=== PATIENT | male | born 1930 | race African-American/Black ===

== ENCOUNTER 2018-10-14 10:52 | Inpatient (IN) | payer OTHER ==
[2018-10-14 13:30] LABS: BASO % 0.3 % (0-2.0); EOS % 0.5 % (0-4.5); HEMATOCRIT 37.1 % (35.4-49); HEMOGLOBIN 11.9 GM/dL (11.7-16.9); LYMPH % 6.5 % (8-40); MCH 27.7 pg (25.7-33.7); MCHC 32.1 g/dl (32.0-35.9); MEAN CELL VOLUME 86.4 fl (80-96); MEAN PLT VOLUME 8.1 fl (7.5-11.1); MONO % 8.2 % (3.8-10.2); NEUT % 84.5 % (42.8-82.8); PLATELET COUNT 327 K/MM3 (134-434); RDW 14.6 % (11.9-15.9); WHITE BLOOD COUNT 16.3 K/mm3 (4.0-10.0)
[2018-10-14 13:56] LABS: ALBUMIN 2.4 g/dl (3.4-5.0); BILIRUBIN,TOTAL 0.3 mg/dL (0.2-1); CALCIUM 8.6 mg/dL (8.5-10.1); MAGNESIUM 2.5 mg/dL (1.8-2.4); POTASSIUM 4.5 mmol/L (3.5-5.1)
[2018-10-14] MEDS ORDERED: PIPERACILLIN/TAZOB 4.5 GM 4.5 GM in DEXTROSE 5%-WATER - 100 ML IVPB ONE (13:56)
[2018-10-14] MEDS ORDERED: VANCOMYCIN 1,000 MG in DEXTROSE 5%-WATER - 250 ML IVPB ONE (13:56)
[2018-10-14 14:02] LABS: INR 1.34 (0.83-1.09); PROTHROMBIN TIME (PATIENT) 15.9 SEC (9.7-13.0)
[2018-10-14 14:04] LABS: ACTIVATED PTT 31.4 SECONDS (25.2-36.5)
[2018-10-14] MEDS ORDERED: VANCOMYCIN 1 GRAM (PRE-DOCKED) 0 MG/0 ML BAG IVPB ONE (14:09)
[2018-10-14] MEDS ORDERED: VANCOMYCIN 1 GRAM (PRE-DOCKED) 1,000 MG/250 ML BAG IVPB ONE (14:11)
[2018-10-14] MEDS ORDERED: HEPARIN NA (PORCINE) 5,000 UNITS/ML 1ML VIAL IVPUSH PRN ×4 (14:12→18:56)
--- NOTE | 2018-10-14 14:20 | PDOC ---
Documentation entered by Shaina Sage SCRIBE, acting as scribe for Addi Torres MD. Addi Torres MD: This documentation has been prepared by the Alona sanchez Victoria, SCRIBE, under my direction and personally reviewed by me in its entirety. I confirm that the documentation accurately reflects all work, treatment, procedures, and medical decision making performed by me. History of Present Illness - General Chief Complaint: Wound Stated Complaint: NO PULSE IN LT FOOT Time Seen by Provider: 10/14/18 11:47 History Source: Patient, Group Home Records, Primary Care Provider Exam Limitations: Dementia - History of Present Illness Initial Comments: 10/14/18 13:06 The patient is an 88 year old male with past medical history of dementia who was sent to the ED by Dr. Mosquera for one week history of cold, swollen left foot. As per nurse at the [facility], patient began developing blisters on his left foot two days ago. In the ED, patients history is limited to his dementia but he reports pain in his left foot. He denies any fever, chills, NVD, cough, SOB, chest pain, or urinary complaints. Vascular: Dr. Mosquera Past History - Past Medical History Allergies/Adverse Reactions: Allergies Allergy/AdvReac Type Severity Reaction Status Date / Time No Known Allergies Allergy Unverified 10/14/18 13:56 Home Medications: Ambulatory Orders Lanolin Alcohol/Mo/W.pet/[place] [Eucerin Creme] 113 gm TP BID 10/14/18 Silver Sulfadiazine 1% Top Cr [Silvadene] 1 applic TP ONCE 10/14/18 COPD: No - Suicide/Smoking/Psychosocial Hx Smoking History: Unknown if ever smoked Hx Alcohol Use: (pt dementia) Drug/Substance Use Hx: (pt dementia) Review of Systems - Review of Systems Able to Perform ROS?: Yes Comments:: 10/14/18 13:06 GENERAL/CONSTITUTIONAL: No fever or chills. No weakness. HEAD, EYES, EARS, NOSE AND THROAT: No change in vision. No ear pain or discharge. No sore throat. GASTROINTESTINAL: No nausea, vomiting, diarrhea or constipation. GENITOURINARY: No dysuria, frequency, or change in urination. CARDIOVASCULAR: No chest pain or shortness of breath. RESPIRATORY: No cough, wheezing, or hemoptysis. MUSCULOSKELETAL: (+) Left foot pain. No neck or back pain. SKIN: No rash NEUROLOGIC: No headache, vertigo, loss of consciousness, or change in strength/ sensation. ENDOCRINE: No increased thirst. No abnormal weight change. HEMATOLOGIC/LYMPHATIC: No anemia, easy bleeding, or history of blood clots. ALLERGIC/IMMUNOLOGIC: No hives or skin allergy. *Physical Exam - Vital Signs Last Vital Signs Temp Pulse Resp BP Pulse Ox 97.2 F L 86 20 138/80 99 10/14/18 11:13 10/14/18 11:13 10/14/18 11:13 10/14/18 11:13 10/14/18 11:13 - Physical Exam Comments: 10/14/18 15:16 GENERAL: Awake, alert, oriented to name only, in no acute distress. Pleasant HEAD: No signs of trauma EYES: EOMI, sclera anicteric, conjunctiva clear ENT: Nares patent, oropharynx clear without exudates. Moist mucosa NECK: Normal ROM, supple, no lymphadenopathy, JVD, or masses LUNGS: Breath sounds equal, clear to auscultation bilaterally. No wheezes, and no crackles HEART: Regular rate and rhythm, normal S1 and S2, no murmurs, rubs or gallops ABDOMEN: Soft, nontender, normoactive bowel sounds. No guarding, no rebound. No masses EXTREMITIES: L foot with no palpable pluse, compared to R foot is cool with erythema and multiple superficial wounds with denuded skin. No crepitus. R foot with palpable pulse, no erythema NEUROLOGICAL: Normal speech, cranial nerves intact, moving all four extremities SKIN: Warm, Dry, normal turgor, no rashes or lesions noted. Heart Score/ECG Review #1 10/14/18 15:20 Twelve-lead EKG was performed and reviewed by me. Sinus rhythm, rate 87. Normal axis. No ST elevations.+ PACs. ED Treatment Course - LABORATORY CBC & Chemistry Diagram: 10/20/18 17:52 10/20/18 05:30 - ADDITIONAL ORDERS Additional order review: Laboratory Results 10/14/18 10/14/18 13:05 13:05 PT with INR 15.90 H INR 1.34 H PTT (Actin FS) 31.4 Sodium 133 L Potassium 4.5 Chloride 100 Carbon Dioxide 29 Anion Gap 5 L BUN 20 H Creatinine 1.0 Est GFR (CKD-EPI)AfAm 78.64 Est GFR (CKD-EPI)NonAf 67.85 Random Glucose 105 Calcium 8.6 Magnesium 2.5 H Total Bilirubin 0.3 AST 20 ALT 23 Alkaline Phosphatase 91 Total Protein 7.0 Albumin 2.4 L 10/14/18 13:05 RBC 4.30 MCV 86.4 MCHC 32.1 RDW 14.6 MPV 8.1 Neutrophils % 84.5 H Lymphocytes % 6.5 L Monocytes % 8.2 Eosinophils % 0.5 Basophils % 0.3 - RADIOLOGY Radiology Studies Ordered: Category Date Time Status ABDOMEN CTA AOR & BLE RUNOFF [CT] Stat CT Scan 10/14/18 13:59 Ordered CHEST X-RAY PORTABLE* [RAD] Stat Radiology 10/14/18 12:02 Ordered DUPLEX ART. LOWER COMPL US [US] Stat Ultrasound 10/14/18 12:02 Ordered Radiograph Interpretation: 10/14/18 16:[address] as reviewed by Dr. Sanabria reports moderate atrophy with chronic microvascular ischemic disease changes. Faint asymmetric low-attenuation density in the left frontal lobe relative to the right, likely an artifact. Correlate clinically to rule out an acute infarct in the left middle cerebral artery territory. Medical Decision Making - Medical Decision Making 10/14/18 12:36 88yo M hx dementia presents to the ED with a cold L foot for unknown period of time Per CHYNA Johnson at ID, foot has been swollen for 1 week and cold for atleast [address] Mosquera who saw pt this AM at the ID, unclear duration but believed by Dr. Mosquera to be chronic in nature Here, L foot no palpable pulses, foot is erythematous, tender, with multiple superficial wounds Case discussed with Dr. Mosquera, as soon as coags are back, will start heparin gtt. Dr. Mosquera requests CTA aorta with runoff if renal function allows. Pt refused US 2/2 pain, attempted to redirect pt and give more pain medication but due to dementia, the pressure of the probe and duration of the study, pt unlikely to be cooperative at this time. WIll obtain CTA von 10/14/18 14:20 coags back, heparin gtt ordered, nurse preparing at this time 10/14/18 14:45 Spoke with pt's HCP and KENAN Person (niece) on the phone and updated her. Confirms that pt has no PMH other than dementia Pt is combative on CT table, was sent back by cath lab radiology technician without communication. Will sedate with ativan 1mg and send back. 10/14/18 15:[address] again 10/14/18 17:30 CT head negative for bleeding. Possible L frontal artifact, vs much less likely ischemic stroke although pt with no focal deficits on exam CTA pending Once back, pt can be admitted Heparin gtt running, 6hr ptt will be at 915pm (has been ordered) Case signed out to Dr. Forrest for further mgmt *DC/Admit/Observation/Transfer Diagnosis at time of Disposition: Arterial occlusion - Discharge Dispostion Condition at time of disposition: Fair Decision to Admit order Date/Time: Decision to Admit Order Category Date Time Status Decision to Admit to Hospital Routine Admission 10/14/18 13:07 Active - Referrals - Patient Instructions - Post Discharge Activity - Attestations Physician Attestion: 10/14/18 17:54 I, Dr. Addi Torres MD, attest that this document has been prepared under my direction and personally reviewed by me in its entirety. I further attest, that it accurately reflects all work, treatment, procedures and medical decision -making performed by me.
[2018-10-14] MEDS ORDERED: LORazepam 2 MG/ML SDV VIAL ONE (15:07)
[2018-10-14] MEDS ORDERED: PIPERACILLIN/TAZOB 4.5 GM 4.5 GM/100 ML BAG IVPB ONE (15:08)
[2018-10-14] MEDS ORDERED: HEPARIN INFUSION - 25,000 UNITS/500 ML INFUS.BAG IVPB ONE (15:13)
[2018-10-14] MEDS: HEPARIN INFUSION - 25,000 UNITS/500 ML INFUS.BAG IVPB SCH (15:29)
--- NOTE | 2018-10-14 15:33 | PN ---
Progress Note (short form) - Note Progress Note: Pt seen by Dr. Mosquera in the nursing facility and sent for admission and workup for a cool left leg. He is in the ER awaiting CTA of his leg. The patient has dementia and unable to answer questions. Vital Signs Period Temp Pulse Resp BP Sys/Quinteros Pulse Ox Last 24 Hr 97.2 F 86 20 138/80 99 GEN: Arousable and refusing IV insertion/examination ABD: soft, non-distended, no palpable masses LE: bilateral femoral pulses. RLE: +1 DP with palpable PT, warm to touch without any ulcers. LLE: cool to touch at above ankle level. No pulses present with palpation/ auscultation. Plantar surface with blister 4th/5th toe and dorsal aspect of his foot with denuding of skin. Foot swollen. CBC, BMP 10/14/18 13:05 10/14/18 13:05 A/P: 88 yo male with Left cool leg Plan for admission CTA of the left leg to be completed today IV heparin to for ischemia to his leg D/w Dr. Mosquera Please medical clear, will plan for possible angio pending CTA results.
--- NOTE | 2018-10-14 15:36 | EKG ---
Test Reason : Blood Pressure : / mmHG Vent. Rate : 087 BPM Atrial Rate : 087 BPM P-R Int : 144 ms QRS Dur : 076 ms QT Int : 378 ms P-R-T Axes : 064 000 -09 degrees QTc Int : 454 ms SINUS RHYTHM WITH PREMATURE ATRIAL COMPLEXES SEPTAL INFARCT , AGE UNDETERMINED ABNORMAL ECG NO PREVIOUS ECGS AVAILABLE Confirmed by ELSIE BARROS MD ([id number]) on 10/14/2018 3:36:10 PM Referred By: Confirmed By:ELSIE BARROS MD
--- NOTE | 2018-10-14 18:26 | PDOC ---
*Physical Exam - Vital Signs Last Vital Signs Temp Pulse Resp BP Pulse Ox 97.2 F L 82 18 152/81 99 10/14/18 11:13 10/14/18 15:28 10/14/18 15:28 10/14/18 15:28 10/14/18 11:13 - Physical Exam Comments: 10/14/18 18:[address] Marquez. Patient is an 88-year-old male who presented with a prolonged period of pulselessness to the left lower extremity (one week) . I received a preliminary report from Dr. Roberson radiology who reports that there is no blood flow past left mid thigh on the CTA. Complete report will be completed in the morning. Patient had been treated with broad-spectrum IV antibiotics and heparin have been initiated. Dr. Mosquera vascular surgery was informed and no immediate surgery is planned given the duration of the patient' s symptoms. Will admit to med /surge. ED Treatment Course - LABORATORY CBC & Chemistry Diagram: 10/14/18 13:05 10/14/18 13:05 - ADDITIONAL ORDERS Additional order review: Laboratory Results 10/14/18 10/14/18 10/14/18 13:05 13:05 13:05 PT with INR 15.90 H INR 1.34 H PTT (Actin FS) 31.4 Sodium 133 L Potassium 4.5 Chloride 100 Carbon Dioxide 29 Anion Gap 5 L BUN 20 H Creatinine 1.0 Est GFR (CKD-EPI)AfAm 78.64 Est GFR (CKD-EPI)NonAf 67.85 Random Glucose 105 Calcium 8.6 Magnesium 2.5 H Total Bilirubin 0.3 AST 20 ALT 23 Alkaline Phosphatase 91 Total Protein 7.0 Albumin 2.4 L Blood Type O POSITIVE Antibody Screen Negative 10/14/18 13:05 RBC 4.30 MCV 86.4 MCHC 32.1 RDW 14.6 MPV 8.1 Neutrophils % 84.5 H Lymphocytes % 6.5 L Monocytes % 8.2 Eosinophils % 0.5 Basophils % 0.3 - Medications Given in the ED: ED Medications Discontinued Medications Generic Name Dose Route Start Last Admin Trade Name Freq PRN Reason Stop Dose Admin Vancomycin HCl 1,000 mg/ 250 mls @ 250 mls/hr 10/14/18 13:56 10/14/18 14:16 Dextrose IVPB 10/14/18 14:55 250 mls/hr ONCE ONE Administration Protocol Piperacillin Sod/Tazobactam 100 mls @ 200 mls/hr 10/14/18 13:56 10/14/18 15: 29 Sod 4.5 gm/ Dextrose IVPB 10/14/18 14:25 200 mls/hr ONCE ONE Administration Protocol Lorazepam 1 mg 10/14/18 15:10 10/14/18 15:29 Ativan Injection - IVPUSH 10/14/18 15:11 1 mg ONCE ONE Administration *DC/Admit/Observation/Transfer Diagnosis at time of Disposition: Arterial occlusion - Discharge Dispostion Condition at time of disposition: Fair Decision to Admit order: Yes - Referrals - Patient Instructions - Post Discharge Activity
[2018-10-14] MEDS ORDERED: LACTATED RINGERS SOLUTION 1,000 ML IV SCH (19:00)
--- NOTE | 2018-10-14 19:06 | PN ---
Teaching Attending Note Name of Resident: Arnol Grajeda ATTENDING PHYSICIAN STATEMENT I saw and evaluated the patient. I reviewed the resident's note and discussed the case with the resident. I agree with the resident's findings and plan as documented. SUBJECTIVE: Patient is an 88 year old man with PMH of dementia who was sent to the ER by Dr. Mosquera for one week history of cold, swollen left foot. As per nurse at the [facility], patient began developing blisters on his left foot two days ago. In the ER, patients history is limited to his dementia but he reports pain in his left foot. He denies any fever, chills, nausea, vomiting, diarrhea, cough, SOB, chest pain, or urinary complaints. OBJECTIVE: Somnolent but arousable. Vital Signs Period Temp Pulse Resp BP Sys/Quinteros Pulse Ox Last 24 Hr 97.2 F 82-86 18-20 138-152/80-81 99 HEENT: No Jaundice, eye redness or discharge, PERRLA, EOMI. Normocephalic, atraumatic. External ears are normal. No nasal discharge. Neck: Supple, nontender. No palpable adenopathy or thyromegaly. No JVD Chest: Good effort. Clear to auscultation and percussion. Heart: Regular. No S3 or rub. 2/6 JIHAN. Abdomen: Not distended, soft, nontender and no HSM. No rebound or guarding. Normal bowel sounds. Ext: Peripheral pulses intact. LLE is cool to touch above ankle level. No pulses present with palpation/auscultation. Plantar surface with blister 4th/ 5th toe and dorsal aspect of his foot with sloughing of skin. Foot swollen with dusky toes. Skin: Warm and dry. No petechiae, rash or ecchymosis. Neuro: Somnolent but arousable. Unable to follow commands. CN 2-12 grossly intact. Sensation grossly intact in all four extremities and DTR are symmetric. Psych: Appropriate mood and affect. Current Medications Generic Name Dose Route Start Last Admin Trade Name Freq PRN Reason Stop Dose Admin Heparin Sodium (Porcine) 1,000 unit 10/14/18 18:56 Heparin - IVPUSH PRN PRN Heparin Heparin Sodium (Porcine) 5,000 unit 10/14/18 18:56 Heparin - IVPUSH PRN PRN Heparin HEPARIN SOD,PORK IN 0.45% NACL 25,000 units in 500 mls @ 20 mls/hr 10/14/18 19 :00 Heparin-1/2ns 25,000 Units/500 IVPB TITR AVINASH Protocol 1,000 UNITS/HR Lactated Ringer's 1,000 mls @ 83 mls/hr 10/14/18 19:00 Lactated Ringers Solution IV 10/16/18 07:03 ASDIR [facility] Home Medications Medication Instructions Recorded Lanolin Alcohol/Mo/W.pet/[place] 113 gm TP BID 10/14/18 [Eucerin Creme] Silver Sulfadiazine 1% Top Cr 1 applic TP ONCE 10/14/18 [Silvadene] Abnormal Lab Results 10/14/18 10/14/18 10/14/18 13:05 13:05 13:05 WBC 16.3 H Absolute Neuts (auto) 13.7 H Neutrophils % 84.5 H Lymphocytes % 6.5 L PT with INR 15.90 H INR 1.34 H Sodium 133 L Anion Gap 5 L BUN 20 H Magnesium 2.5 H Albumin 2.4 L ASSESSMENT AND PLAN: 1. Left lower extremity arterial occlusion - Preliminary report of CTA from Dr. Roberson radiology states that there is no blood flow past left mid thigh. Complete report will be completed in the morning. Patient had been treated with IV vancomycin and zosyn after sepsis work up. IV heparin drip started and patient is being kept NPO for possible surgery tomorrow by Dr. Mosquera - vascular surgery. No immediate surgery is planned given the duration of the patient's symptoms - as per vascular surgery. Unclear why his mental status changed. Head CT scan did not show any acute abnormality. EKG is NSR with no significant ST-T wave changes. Will monitor on telemetry. 2. Hypoalbuminemia - Possibly due to combined effects of malnutrition and inflammation associated with comorbid chronic conditions. Will ensure adequate dietary protein intake and also consult director of graduate medical education. 3. DVT prophylaxis - On IV Heparin drip 4. Advance directives - Full code
--- NOTE | 2018-10-14 19:31 | HP ---
CHIEF COMPLAINT: ischemic left foot HISTORY OF PRESENT ILLNESS: 88 year old male with a hx of dementia presented to ED for 1 week of cold left foot and swelling of the L foot. He sees Dr. Mosquera as an outpatient and follows at [place]. Per report, patient started to develop blisters on his foot 2 days ago as well as increasing pain. Patient is not arousable on my exam and is unable to answer any of my questions. ER course was notable for: (1) prelim CTA read notable for no blood flow to the left foot (2) (3) Recent Travel: unknown PAST MEDICAL HISTORY: dementia PAST SURGICAL HISTORY: unknown at present time Social History: Smoking: unknown at present time Alcohol: unknown at present time Drugs: unknown at present time Family History: Allergies No Known Allergies Allergy (Unverified 10/14/18 13:56) HOME MEDICATIONS: Home Medications Medication Instructions Recorded Lanolin Alcohol/Mo/W.pet/[place] 113 gm TP BID 10/14/18 [Eucerin Creme] Silver Sulfadiazine 1% Top Cr 1 applic TP ONCE 10/14/18 [Silvadene] REVIEW OF SYSTEMS unable to assess due to mental status PHYSICAL EXAMINATION Vital Signs - 24 hr 10/14/18 10/14/18 11:13 15:28 Temperature 97.2 F L Pulse Rate 86 Pulse Rate [ 82 Right Radial] Respiratory 20 18 Rate Blood Pressure 138/80 Blood Pressure 152/81 [Right Arm] O2 Sat by Pulse 99 Oximetry (%) GENERAL: A&Ox0, no acute distress EYES: PERRLA, EOMI ENT: Dry NECK: No JVD LUNGS: CTA, no wheezes HEART: RRR, systolic murmur noted on exam ABDOMEN: Soft, nontender, BS present MUSCULOSKELETAL: No CVA Tenderness EXTREMITIES: 2+ pulses, R foot 1+ pulses, no edema. L foot cool to touch, pulses not palpated. Skin sloughing on dorsal surface of L foot and L 4th toe. Ischemic region noted on distal L lower extremity. upper extremity normal. NEUROLOGICAL: Cranial nerves II-XII intact. Laboratory Results - last 24 hr 10/14/18 10/14/18 10/14/18 13:05 13:05 13:05 WBC 16.3 H RBC 4.30 Hgb 11.9 Hct 37.1 MCV 86.4 MCH 27.7 MCHC 32.1 RDW 14.6 Plt Count 327 MPV 8.1 Absolute Neuts (auto) 13.7 H Neutrophils % 84.5 H Lymphocytes % 6.5 L Monocytes % 8.2 Eosinophils % 0.5 Basophils % 0.3 Nucleated RBC % 0 PT with INR 15.90 H INR 1.34 H PTT (Actin FS) 31.4 Sodium 133 L Potassium 4.5 Chloride 100 Carbon Dioxide 29 Anion Gap 5 L BUN 20 H Creatinine 1.0 Est GFR (CKD-EPI)AfAm 78.64 Est GFR (CKD-EPI)NonAf 67.85 Random Glucose 105 Calcium 8.6 Magnesium 2.5 H Total Bilirubin 0.3 AST 20 ALT 23 Alkaline Phosphatase 91 Total Protein 7.0 Albumin 2.4 L Blood Type Antibody Screen 10/14/18 13:05 WBC RBC Hgb Hct MCV MCH MCHC RDW Plt Count MPV Absolute Neuts (auto) Neutrophils % Lymphocytes % Monocytes % Eosinophils % Basophils % Nucleated RBC % PT with INR INR PTT (Actin FS) Sodium Potassium Chloride Carbon Dioxide Anion Gap BUN Creatinine Est GFR (CKD-EPI)AfAm Est GFR (CKD-EPI)NonAf Random Glucose Calcium Magnesium Total Bilirubin AST ALT Alkaline Phosphatase Total Protein Albumin Blood Type O POSITIVE Antibody Screen Negative ASSESSMENT/PLAN: 88 year old male with a hx of dementia presented to ED for 1 week of cold left foot and swelling of the L foot. #Ischemic Left Foot: unknown hx of afib to indicate embolic origin, possibly thrombotic -per Dr. Mosquera, likely thrombectomy in AM -EKG noted (sinus rhythm with PACs, rate 87, Qtc 454) -heparin ggt -abx vanc/zosyn -npo after midnight -pain control -echo #FEN -lactated ringers @ 83cc/hr -lytes normal, replete as necessary -NPO after midnight #Prophylaxis -heparin ggt #Disposition -admit med surg Visit type - Emergency Visit Emergency Visit: Yes ED Registration Date: 10/14/18 Care time: The patient presented to the Emergency Department on the above date and was hospitalized for further evaluation of their emergent condition. - New Patient This patient is new to me today: Yes Date on this admission: 10/14/18 - Critical Care Critical Care patient: No
[2018-10-14] MEDS: HEPARIN SOD,PORK IN 0.45% NACL 25,000 UNITS/500 ML INFUS.BAG IVPB SCH (20:09)
[2018-10-14] MEDS ORDERED: KETOROLAC TROMETHAMINE 15 MG/ML VIAL IVPUSH PRN (20:40)
[2018-10-14] MEDS ORDERED: MORPHINE SULFATE 2 MG/ML VIAL IVPUSH PRN (20:40)
[2018-10-14] MEDS ORDERED: VANCOMYCIN 1,250 MG in DEXTROSE 5%-WATER - 250 ML IVPB SCH (20:45)
[2018-10-15] MEDS ORDERED: PIPERACILLIN/TAZOBACTAM 3.375 GM VIAL IVPB ONE ×3 (02:30→17:36)
[2018-10-15] MEDS ORDERED: DEXTROSE 5%-WATER - 50 ML IVPB ONE ×3 (02:30→17:36)
[2018-10-15] MEDS: PIPERACILLIN/TAZOB 3.375 GM 3.375 GM in DEXTROSE 5%-WATER - 50 ML IVPB SCH ×4 (02:36→18:54)
[2018-10-15 07:07] LABS: HEMATOCRIT 35.5 % (35.4-49); HEMOGLOBIN 11.7 GM/dL (11.7-16.9); MCH 27.8 pg (25.7-33.7); MCHC 32.8 g/dl (32.0-35.9); MEAN CELL VOLUME 84.8 fl (80-96); MEAN PLT VOLUME 7.8 fl (7.5-11.1); PLATELET COUNT 356 K/MM3 (134-434); RBC 4.19 M/mm3 (4.00-5.60); RDW 14.4 % (11.9-15.9); WHITE BLOOD COUNT 12.7 K/mm3 (4.0-10.0)
[2018-10-15 07:40] LABS: CALCIUM 8.5 mg/dL (8.5-10.1); CREATININE 0.9 mg/dL (0.55-1.3); MAGNESIUM 2.4 mg/dL (1.8-2.4); PHOSPHOROUS 3.9 mg/dL (2.5-4.9); POTASSIUM 4.1 mmol/L (3.5-5.1)
[2018-10-15 09:06] LABS: PREALBUMIN 6.2 mg/dl (20-40)
--- NOTE | 2018-10-15 09:07 | PN ---
Physical Exam: SUBJECTIVE: Patient seen and examined this AM. States he is doing well. Does have some pain in LLE. States he does not think he will need surgery for correction of his ischemia OBJECTIVE: Vital Signs Period Temp Pulse Resp BP Sys/Quinteros Pulse Ox Last 24 Hr 97.2 F-98.7 F 82-95 18-20 127-152/63-98 99-99 GEN: alert, oriented to self only, no acute distress HEENT: PERRL, dry mucus membranes HEART: RRR, no murmurs noted LUNGS: CTA b/l, no wheezes noted ABDOMEN: Soft, nontender EXTREMITIES: LLE: cool, nonpitting edema, no palpable pulses, bandage clean and dry, RLE: good pulses, warm NEURO: CNII-XII grossly in tact, no gross deficits Laboratory Results - last 24 hr 10/14/18 10/14/18 10/14/18 13:05 13:05 13:05 WBC 16.3 H RBC 4.30 Hgb 11.9 Hct 37.1 MCV 86.4 MCH 27.7 MCHC 32.1 RDW 14.6 Plt Count 327 MPV 8.1 Absolute Neuts (auto) 13.7 H Neutrophils % 84.5 H Lymphocytes % 6.5 L Monocytes % 8.2 Eosinophils % 0.5 Basophils % 0.3 Nucleated RBC % 0 PT with INR 15.90 H INR 1.34 H PTT (Actin FS) 31.4 Sodium 133 L Potassium 4.5 Chloride 100 Carbon Dioxide 29 Anion Gap 5 L BUN 20 H Creatinine 1.0 Est GFR (CKD-EPI)AfAm 78.64 Est GFR (CKD-EPI)NonAf 67.85 Random Glucose 105 Calcium 8.6 Phosphorus Magnesium 2.5 H Total Bilirubin 0.3 AST 20 ALT 23 Alkaline Phosphatase 91 Total Protein 7.0 Albumin 2.4 L Prealbumin Blood Type Antibody Screen 10/14/18 10/14/18 10/15/18 13:05 21:25 06:00 WBC 12.7 H RBC 4.19 Hgb 11.7 Hct 35.5 MCV 84.8 MCH 27.8 MCHC 32.8 RDW 14.4 Plt Count 356 MPV 7.8 Absolute Neuts (auto) Neutrophils % Lymphocytes % Monocytes % Eosinophils % Basophils % Nucleated RBC % PT with INR INR PTT (Actin FS) 40.2 H Sodium Potassium Chloride Carbon Dioxide Anion Gap BUN Creatinine Est GFR (CKD-EPI)AfAm Est GFR (CKD-EPI)NonAf Random Glucose Calcium Phosphorus Magnesium Total Bilirubin AST ALT Alkaline Phosphatase Total Protein Albumin Prealbumin Blood Type O POSITIVE Antibody Screen Negative 10/15/18 06:00 WBC RBC Hgb Hct MCV MCH MCHC RDW Plt Count MPV Absolute Neuts (auto) Neutrophils % Lymphocytes % Monocytes % Eosinophils % Basophils % Nucleated RBC % PT with INR INR PTT (Actin FS) Sodium 133 L Potassium 4.1 Chloride 98 Carbon Dioxide 29 Anion Gap 6 L BUN 13 Creatinine 0.9 Est GFR (CKD-EPI)AfAm 89.32 Est GFR (CKD-EPI)NonAf 77.06 Random Glucose 119 H Calcium 8.5 Phosphorus 3.9 Magnesium 2.4 Total Bilirubin AST ALT Alkaline Phosphatase Total Protein Albumin Prealbumin 6.2 L Blood Type Antibody Screen Active Medications Generic Name Dose Route Start Last Admin Trade Name Freq PRN Reason Stop Dose Admin Heparin Sodium (Porcine) 1,000 unit 10/14/18 18:56 Heparin - IVPUSH PRN PRN Heparin Heparin Sodium (Porcine) 5,000 unit 10/14/18 18:56 Heparin - IVPUSH PRN PRN Heparin HEPARIN SOD,PORK IN 0.45% NACL 25,000 units in 500 mls @ 20 mls/hr 10/14/18 19 :00 10/14/18 20:09 Heparin-1/2ns 25,000 Units/500 IVPB Not Given TITR AVINASH Protocol 1,000 UNITS/HR Lactated Ringer's 1,000 mls @ 83 mls/hr 10/14/18 19:00 10/14/18 20:10 Lactated Ringers Solution IV 10/16/18 07:03 83 mls/hr ASDIR AVINASH Administration Piperacillin Sod/Tazobactam 50 mls @ 100 mls/hr 10/15/18 02:00 10/15/18 02:36 Sod 3.375 gm/ Dextrose IVPB 10/15/18 18:29 100 mls/hr Q8H-IV AVINASH Administration Protocol Vancomycin HCl 1,250 mg/ 250 mls @ 166.667 mls/hr 10/14/18 21:00 Dextrose IVPB Q12H AVINASH Protocol Piperacillin Sod/Tazobactam 50 mls @ 100 mls/hr 10/15/18 02:00 Sod 3.375 gm/ Dextrose IVPB Q8H-IV AVINASH Protocol Ketorolac Tromethamine 15 mg 10/14/18 20:40 Toradol Injection - IVPUSH 10/19/18 20:39 Q6H PRN PAIN LEVEL 1 - 3 Morphine Sulfate 1 mg 10/14/18 20:40 Morphine Sulfate IVPUSH Q4H PRN PAIN LEVEL 4 - 6 ASSESSMENT/PLAN: 88 year old male with a hx of dementia presented to ED for 1 week of cold left foot and swelling of the L foot. Left Ischemic Leg -No pulse in left foot, unlikely embolic -Vascular surgery consult appreciated -Continue heparin drip -For angiogram tomorrow, NPO at midnight Dimentia -unsure of baseline, will monitor FEN -hold fluid -monitor and replete -regular diet today, NPO at midnight for OR DVT Prophylaxis -on heparin drip Disposition Med/Surg, For OR in AM Visit type - Emergency Visit Emergency Visit: Yes ED Registration Date: 10/14/18 Care time: The patient presented to the Emergency Department on the above date and was hospitalized for further evaluation of their emergent condition. - New Patient This patient is new to me today: Yes Date on this admission: 10/15/18 - Critical Care Critical Care patient: No
[2018-10-15] MEDS: HEPARIN INFUSION - 25,000 UNITS/500 ML INFUS.BAG IVPB SCH (10:46)
--- NOTE | 2018-10-15 12:37 | PN ---
Progress Note (short form) - Note Progress Note: Vascular Surgery CTA reviewed. Severe atherosclerotic disease bl lower ext. Pt is not in afib. This is not embolus. Pt will need angiogram to open left common iliac and SFA. Cont AC. Pt booked for angiogram [place]. NPO past midnight Pt was seen in [place] yesterday. Left leg has been like this for at least a week. I examined the pt and sent the pt to ER for work up and imaging. Ton Mosquera dO
--- NOTE | 2018-10-15 13:29 | ECHO ---
Name: ELLEN HOANG Exam:Adult Echocardiogram Study Date: 10/15/2018 08:07 AM Age: 88 yrs Reason For Study: LV Function Height: 67 in Weight: 148 lb BSA: 1.8 m2 MMode/2D Measurements & Calculations IVSd: 1.5 cm Ao root diam: 2.9 cm LVIDd: 3.8 cm LA dimension: 3.8 cm LVIDs: 2.6 cm LVPWd: 1.6 cm EDV(Teich): 63.8 ml LVOT diam: 2.0 cm ESV(Teich): 25.0 ml LAV (MOD-bp): 58.2 ml Doppler Measurements & Calculations MV E max markus: 97.5 cm/sec Ao V2 max: 186.0 cm/sec MV A max markus: 72.8 cm/sec Ao max P.9 mmHg MV E/A: 1.3 AI P1/2t: 346.3 msec MV dec time: 0.17 sec HANK(V,D): 1.6 cm2 AI max markus: 348.8 cm/sec LV V1 max P.4 mmHg AI max P.7 mmHg LV V1 max: 92.6 cm/sec AI dec slope: 295.1 cm/sec2 MR max markus: 375.5 cm/sec TR max markus: 360.4 cm/sec MR max P.8 mmHg TR max P.0 mmHg PA V2 max: 111.3 cm/sec Med Peak E' Markus: 5.5 cm/sec PA max P.0 mmHg Med E/e': 17.6 Lat Peak E' Markus: 10.4 cm/sec Lat E/e': 9.3 PI Vmax: 279.6 cm/sec Procedure A complete two-dimensional transthoracic echocardiogram was performed (2D, M-mode, Doppler and color flow Doppler). Left Ventricle There is moderate concentric left ventricular hypertrophy. The left ventricular ejection fraction is normal. Ejection Fraction = 55-60%. The left ventricular wall motion is normal. Right Ventricle The right ventricle is normal in size and function. Atria Normal left and right atrial size and function. Mitral Valve There is mild mitral regurgitation. Tricuspid Valve There is trace tricuspid regurgitation. Right ventricular systolic pressure is elevated at 50-60mmHg. Aortic Valve There is mild aortic valve thickening. The aortic valve is trileaflet. No hemodynamically significant valvular aortic stenosis. Mild aortic regurgitation. Pulmonic Valve Trace pulmonic valvular regurgitation. Great Vessels The aortic root is normal size. Pericardium/Pleura There is no pericardial effusion. Interpretation Summary There is moderate concentric left ventricular hypertrophy. The left ventricular ejection fraction is normal. The right ventricle is normal in size and function. There is mild mitral regurgitation. There is trace tricuspid regurgitation. Right ventricular systolic pressure is elevated at 50-60mmHg. Mild aortic regurgitation. Trace pulmonic valvular regurgitation. MD Campbell García 10/15/2018 01:29 PM
[2018-10-15] MEDS: HEPARIN SOD,PORK IN 0.45% NACL 25,000 UNITS/500 ML INFUS.BAG IVPB SCH ×2 (17:43→19:47)
--- NOTE | 2018-10-15 17:59 | PN ---
Teaching Attending Note Name of Resident: Will Arriaza ATTENDING PHYSICIAN STATEMENT I saw and evaluated the patient. I reviewed the resident's note and discussed the case with the resident. I agree with the resident's findings and plan as documented. SUBJECTIVE: Patient has no new complain, no nausea or vomiting, no shortness of breath. OBJECTIVE: Vital Signs Temperature 98.9 F 10/15/18 15:06 Pulse Rate 103 H 10/15/18 15:06 Respiratory Rate 20 10/15/18 15:06 Blood Pressure 157/79 10/15/18 15:06 O2 Sat by Pulse Oximetry (%) 99 10/15/18 09:00 GEN: alert, oriented to self only, no acute distress HEENT: PERRL, dry mucus membranes HEART: RRR, no murmurs noted LUNGS: CTA b/l, no wheezes noted ABDOMEN: Soft, nontender EXTREMITIES: LLE: cool, non-pitting edema, no palpable pulses. bandage clean and dry, RLE: good pulses, warm NEURO: CNII-XII grossly in tact, no gross deficits CBCD WBC 12.7 K/mm3 (4.0-10.0) H 10/15/18 06:00 RBC 4.19 M/mm3 (4.00-5.60) 10/15/18 06:00 Hgb 11.7 GM/dL (11.7-16.9) 10/15/18 06:00 Hct 35.5 % (35.4-49) 10/15/18 06:00 MCV 84.8 fl (80-96) 10/15/18 06:00 MCHC 32.8 g/dl (32.0-35.9) 10/15/18 06:00 RDW 14.4 % (11.9-15.9) 10/15/18 06:00 Plt Count 356 K/MM3 (134-434) 10/15/18 06:00 MPV 7.8 fl (7.5-11.1) 10/15/18 06:00 CMP Sodium 133 mmol/L (136-145) L 10/15/18 06:00 Potassium 4.1 mmol/L (3.5-5.1) 10/15/18 06:00 Chloride 98 mmol/L (98-107) 10/15/18 06:00 Carbon Dioxide 29 mmol/L (21-32) 10/15/18 06:00 Anion Gap 6 MMOL/L (8-16) L 10/15/18 06:00 BUN 13 mg/dL (7-18) 10/15/18 06:00 Creatinine 0.9 mg/dL (0.55-1.3) 10/15/18 06:00 Random Glucose 119 mg/dL (74-106) H 10/15/18 06:00 Calcium 8.5 mg/dL (8.5-10.1) 10/15/18 06:00 Total Bilirubin 0.3 mg/dL (0.2-1) 10/14/18 13:05 AST 20 U/L (15-37) 10/14/18 13:05 ALT 23 U/L (13-61) 10/14/18 13:05 Alkaline Phosphatase 91 U/L (45-117) 10/14/18 13:05 Total Protein 7.0 g/dl (6.4-8.2) 10/14/18 13:05 Albumin 2.4 g/dl (3.4-5.0) L 10/14/18 13:05 Current Medications Generic Name Dose Route Start Last Admin Trade Name Freq PRN Reason Stop Dose Admin Heparin Sodium (Porcine) 1,000 unit 10/14/18 18:56 Heparin - IVPUSH PRN PRN Heparin Heparin Sodium (Porcine) 5,000 unit 10/14/18 18:56 Heparin - IVPUSH PRN PRN Heparin HEPARIN SOD,PORK IN 0.45% NACL 25,000 units in 500 mls @ 20 mls/hr 10/14/18 19 :00 10/15/18 17:43 Heparin-1/2ns 25,000 Units/500 IVPB 1,300 units/hr TITR AVINASH 26 mls/hr Administration Protocol 1,000 UNITS/HR Piperacillin Sod/Tazobactam 50 mls @ 100 mls/hr 10/15/18 02:00 10/15/18 17:44 Sod 3.375 gm/ Dextrose IVPB 10/15/18 18:29 100 mls/hr Q8H-IV AVINASH Administration Protocol Vancomycin HCl 1,250 mg/ 250 mls @ 166.667 mls/hr 10/14/18 21:00 Dextrose IVPB Q12H AVINASH Protocol Piperacillin Sod/Tazobactam 50 mls @ 100 mls/hr 10/15/18 02:00 Sod 3.375 gm/ Dextrose IVPB Q8H-IV AVINASH Protocol Ketorolac Tromethamine 15 mg 10/14/18 20:40 Toradol Injection - IVPUSH 10/19/18 20:39 Q6H PRN PAIN LEVEL 1 - 3 Morphine Sulfate 1 mg 10/14/18 20:40 Morphine Sulfate IVPUSH Q4H PRN PAIN LEVEL 4 - 6 Home Medications Medication Instructions Recorded Lanolin Alcohol/Mo/W.pet/[place] 113 gm TP BID 10/14/18 [Eucerin Creme] Silver Sulfadiazine 1% Top Cr 1 applic TP ONCE 10/14/18 [Silvadene] EKG noted (sinus rhythm with PACs, rate 87, Qtc 454) ASSESSMENT AND PLAN: Patient is a 88 year old male with PMhx of dementia presented to ED for having one week of left cold foot and swelling of the L foot. #Ischemic Left Foot: Dr. Mosquera, will take the patient to OR for angiogram to open left common iliac and SFA. due to having severe athersclerotic disease. Continue heparin ggt, NPo after midnight. pain control, echo, will hold off on IV antibiotic. will reevaluate in am DVT Px: heparin ggt -admit med surg
--- NOTE | 2018-10-15 18:32 | PN ---
Progress Note (short form) - Note Progress Note: Vascular Surgery Pt seen and examined. Left foot dressing changed. Left foot cool to touch. This is a acute on chronic process. Pt having minimal pain. Motor and sensory intact. Will do angiogram blossom for SFA occlusion. Ton Mosquera DO
[2018-10-15] MEDS: VANCOMYCIN 1,250 MG in DEXTROSE 5%-WATER - 250 ML IVPB SCH ×2 (18:53→18:54)
[2018-10-16 07:20] LABS: HEMATOCRIT 35.1 % (35.4-49); HEMOGLOBIN 11.5 GM/dL (11.7-16.9); MCH 27.9 pg (25.7-33.7); MCHC 32.7 g/dl (32.0-35.9); MEAN CELL VOLUME 85.5 fl (80-96); PLATELET COUNT 351 K/MM3 (134-434); RBC 4.11 M/mm3 (4.00-5.60); RDW 14.5 % (11.9-15.9); WHITE BLOOD COUNT 10.9 K/mm3 (4.0-10.0)
--- NOTE | 2018-10-16 07:26 | PN ---
Physical Exam: SUBJECTIVE: Patient seen and examined this AM. States he is doing well with minimal pain. pt for OR today for angiogram/plasty to open left SFA. OBJECTIVE: Vital Signs Period Temp Pulse Resp BP Sys/Quinteros Pulse Ox Last 24 Hr 97.9 F-98.9 F 75-103 20-20 103-159/50-79 96-99 GEN: alert, oriented to self only, no acute distress HEENT: PERRL, dry mucus membranes HEART: RRR, no murmurs noted LUNGS: CTA b/l, no wheezes noted ABDOMEN: Soft, nontender EXTREMITIES: LLE: cool, nonpitting edema, no palpable pulses, bandage clean and dry, RLE: good pulses, warm NEURO: CNII-XII grossly in tact, no gross deficits Laboratory Results - last 24 hr 10/15/18 10/15/18 10/15/18 06:00 06:00 06:00 WBC 12.7 H RBC 4.19 Hgb 11.7 Hct 35.5 MCV 84.8 MCH 27.8 MCHC 32.8 RDW 14.4 Plt Count 356 MPV 7.8 PTT (Actin FS) Sodium 133 L Potassium 4.1 Chloride 98 Carbon Dioxide 29 Anion Gap 6 L BUN 13 Creatinine 0.9 Est GFR (CKD-EPI)AfAm 89.32 Est GFR (CKD-EPI)NonAf 77.06 Random Glucose 119 H Calcium 8.5 Phosphorus 3.9 Magnesium 2.4 Prealbumin 6.2 L Blood Type O POSITIVE 10/15/18 10/15/18 10/15/18 09:25 16:00 20:50 WBC RBC Hgb Hct MCV MCH MCHC RDW Plt Count MPV PTT (Actin FS) 41.0 H 49.7 H 49.9 H Sodium Potassium Chloride Carbon Dioxide Anion Gap BUN Creatinine Est GFR (CKD-EPI)AfAm Est GFR (CKD-EPI)NonAf Random Glucose Calcium Phosphorus Magnesium Prealbumin Blood Type 10/16/18 03:18 WBC RBC Hgb Hct MCV MCH MCHC RDW Plt Count MPV PTT (Actin FS) 74.7 H Sodium Potassium Chloride Carbon Dioxide Anion Gap BUN Creatinine Est GFR (CKD-EPI)AfAm Est GFR (CKD-EPI)NonAf Random Glucose Calcium Phosphorus Magnesium Prealbumin Blood Type Active Medications Generic Name Dose Route Start Last Admin Trade Name Freq PRN Reason Stop Dose Admin Heparin Sodium (Porcine) 1,000 unit 10/14/18 18:56 10/15/18 21:25 Heparin - IVPUSH 1,000 unit PRN PRN Administration Heparin Heparin Sodium (Porcine) 5,000 unit 10/14/18 18:56 Heparin - IVPUSH PRN PRN Heparin HEPARIN SOD,PORK IN 0.45% NACL 25,000 units in 500 mls @ 20 mls/hr 10/14/18 19 :00 10/15/18 21:20 Heparin-1/2ns 25,000 Units/500 IVPB 1,400 units/hr TITR AVINASH 28 mls/hr Titration Protocol 1,000 UNITS/HR Ketorolac Tromethamine 15 mg 10/14/18 20:40 Toradol Injection - IVPUSH 10/19/18 20:39 Q6H PRN PAIN LEVEL 1 - 3 Morphine Sulfate 1 mg 10/14/18 20:40 Morphine Sulfate IVPUSH Q4H PRN PAIN LEVEL 4 - 6 ASSESSMENT/PLAN: 88 year old male with a hx of dementia presented to ED for 1 week of cold left foot and swelling of the L foot. Left Ischemic Leg -No pulse in left foot, unlikely embolic -Vascular surgery consult appreciated -Continue heparin drip -For angiogram/plasty today with vascular surgery Dimentia -frequent reorienting FEN -hold fluid -monitor and replete -regular diet can be resumed post-op DVT Prophylaxis -on heparin drip Disposition Med/Surg, For OR in today Visit type - Emergency Visit Emergency Visit: Yes ED Registration Date: 10/14/18 Care time: The patient presented to the Emergency Department on the above date and was hospitalized for further evaluation of their emergent condition. - New Patient This patient is new to me today: No - Critical Care Critical Care patient: No
[2018-10-16 08:02] LABS: CALCIUM 8.4 mg/dL (8.5-10.1); CREATININE 0.9 mg/dL (0.55-1.3); MAGNESIUM 2.6 mg/dL (1.8-2.4); PHOSPHOROUS 3.8 mg/dL (2.5-4.9); POTASSIUM 3.9 mmol/L (3.5-5.1)
[2018-10-16] MEDS: HEPARIN SOD,PORK IN 0.45% NACL 25,000 UNITS/500 ML INFUS.BAG IVPB SCH ×2 (10:26→21:00)
[2018-10-16 12:47] VITALS: BMI 23.0
[2018-10-16] MEDS ORDERED: LIDOCAINE HCL 1%, 10 MG/ML (20ML VIAL) ONE (14:56)
[2018-10-16] MEDS ORDERED: HEPARIN NA (PORCINE) 5,000 UNITS/ML 1ML VIAL ONE (14:56)
[2018-10-16] MEDS ORDERED: MIDAZOLAM HCL 2 MG/2 ML SINGLE DOSE VIAL ONE (14:59)
[2018-10-16] MEDS ORDERED: PROPOFOL 20 ML ONE ×3 (14:59→16:18)
[2018-10-16] MEDS ORDERED: SODIUM CHLORIDE 0.9% P/F 10 ML VIAL IJ ONE (15:00)
[2018-10-16] MEDS ORDERED: ceFAZolin SODIUM 1 GM VIAL ONE (15:00)
--- NOTE | 2018-10-16 15:19 | PN ---
Teaching Attending Note Name of Resident: Will Arriaza ATTENDING PHYSICIAN STATEMENT I saw and evaluated the patient. I reviewed the resident's note and discussed the case with the resident. I agree with the resident's findings and plan as documented. SUBJECTIVE: Patient is comfortable with no acute distress, denies any lower extremity pain. OBJECTIVE: Vital Signs Temperature 98.4 F 10/16/18 13:46 Pulse Rate 76 10/16/18 13:46 Respiratory Rate 20 10/16/18 13:46 Blood Pressure 153/86 10/16/18 13:46 O2 Sat by Pulse Oximetry (%) 95 10/16/18 09:00 GEN: alert, oriented to self only, no acute distress HEENT: PERRL, dry mucus membranes HEART: RRR, no murmurs noted LUNGS: CTA b/l, no wheezes noted ABDOMEN: Soft, nontender EXTREMITIES: LLE: cool, non-pitting edema, no palpable pulse on the left. Left dorsum of the foot open skin tear, not infected. RLE: good pulses, warm NEURO: CNII-XII grossly in tact, no gross deficits CBCD WBC 10.9 K/mm3 (4.0-10.0) H 10/16/18 06:00 RBC 4.11 M/mm3 (4.00-5.60) 10/16/18 06:00 Hgb 11.5 GM/dL (11.7-16.9) L 10/16/18 06:00 Hct 35.1 % (35.4-49) L 10/16/18 06:00 MCV 85.5 fl (80-96) 10/16/18 06:00 MCHC 32.7 g/dl (32.0-35.9) 10/16/18 06:00 RDW 14.5 % (11.9-15.9) 10/16/18 06:00 Plt Count 351 K/MM3 (134-434) 10/16/18 06:00 MPV 8.0 fl (7.5-11.1) 10/16/18 06:00 CMP Sodium 135 mmol/L (136-145) L 10/16/18 06:00 Potassium 3.9 mmol/L (3.5-5.1) 10/16/18 06:00 Chloride 101 mmol/L (98-107) 10/16/18 06:00 Carbon Dioxide 25 mmol/L (21-32) 10/16/18 06:00 Anion Gap 9 MMOL/L (8-16) 10/16/18 06:00 BUN 17 mg/dL (7-18) 10/16/18 06:00 Creatinine 0.9 mg/dL (0.55-1.3) 10/16/18 06:00 Random Glucose 97 mg/dL (74-106) 10/16/18 06:00 Calcium 8.4 mg/dL (8.5-10.1) L 10/16/18 06:00 Total Bilirubin 0.3 mg/dL (0.2-1) 10/14/18 13:05 AST 20 U/L (15-37) 10/14/18 13:05 ALT 23 U/L (13-61) 10/14/18 13:05 Alkaline Phosphatase 91 U/L (45-117) 10/14/18 13:05 Total Protein 7.0 g/dl (6.4-8.2) 10/14/18 13:05 Albumin 2.4 g/dl (3.4-5.0) L 10/14/18 13:05 Current Medications Generic Name Dose Route Start Last Admin Trade Name Freq PRN Reason Stop Dose Admin Heparin Sodium (Porcine) 1,000 unit 10/14/18 18:56 10/15/18 21:25 Heparin - IVPUSH 1,000 unit PRN PRN Administration Heparin Heparin Sodium (Porcine) 5,000 unit 10/14/18 18:56 Heparin - IVPUSH PRN PRN Heparin HEPARIN SOD,PORK IN 0.45% NACL 25,000 units in 500 mls @ 20 mls/hr 10/14/18 19 :00 10/16/18 10:26 Heparin-1/2ns 25,000 Units/500 IVPB 1,300 units/hr TITR AVINASH 26 mls/hr Administration Protocol 1,000 UNITS/HR Ketorolac Tromethamine 15 mg 10/14/18 20:40 Toradol Injection - IVPUSH 10/19/18 20:39 Q6H PRN PAIN LEVEL 1 - 3 Morphine Sulfate 1 mg 10/14/18 20:40 Morphine Sulfate IVPUSH Q4H PRN PAIN LEVEL 4 - 6 Home Medications Medication Instructions Recorded Lanolin Alcohol/Mo/W.pet/[place] 113 gm TP BID 10/14/18 [Eucerin Creme] Silver Sulfadiazine 1% Top Cr 1 applic TP ONCE 10/14/18 [Silvadene] EKG noted (sinus rhythm with PACs, rate 87, Qtc 454) ASSESSMENT AND PLAN: Patient is a 88 year old male with PMhx of dementia presented to ED for having one week of left cold foot and swelling of the L foot. #Ischemic Left Foot: Patient is going to OR with Dr. Mosquera today, for angiogram to open left common iliac and SFA. due to having severe athersclerotic disease. Continue heparin ggt, NPo ,. pain control, echo, will hold off on IV antibiotic since no infection source. DVT Px: heparin ggt -admit med surg
[2018-10-16] MEDS ORDERED: ceFAZolin SODIUM 1 GM VIAL IVPB ONE (15:22)
[2018-10-16] MEDS ORDERED: LIDOCAINE HCL/PF 2% SDV 5ML VIAL ONE (15:23)
[2018-10-16] MEDS ORDERED: oxyCODONE HCL 5 MG TABLET PO PRN ×2 (16:20→20:12)
[2018-10-16] MEDS ORDERED: ONDANSETRON 4 MG/2 ML VIAL IVPUSH PRN ×2 (16:20→20:12)
[2018-10-16] MEDS ORDERED: PROMETHAZINE HCL 25 MG/1 ML VIAL IVPUSH PRN ×2 (16:20→20:12)
[2018-10-16] MEDS ORDERED: DEXAMETHASONE SOD PHOSPHATE 4 MG/1 ML VIAL ONE (17:26)
[2018-10-16] MEDS ORDERED: POVIDONE-IODINE OINTMENT 10% - 28.4 GM TUBE ONE (17:36)
[2018-10-16] MEDS ORDERED: HEPARIN INFUSION - 25,000 UNITS/500 ML INFUS.BAG IVPB ONE (17:55)
--- NOTE | 2018-10-16 18:02 | OP ---
Operative Note - Note: Operative Date: 10/16/18 Pre-Operative Diagnosis: LLE ischemia Operation: Aortogram, LLE angiogram, open thrombectomy femoral artery, popliteal artery, tibial artery . Findings: Embolus in entire left leg. Post-Operative Diagnosis: Same as Pre-op Surgeon: Ton Mosquera Anesthesia: General Estimated Blood Loss (mls): 250 Operative Report Dictated: Yes
[2018-10-16] MEDS ORDERED: HEPARIN NA (PORCINE) 5,000 UNITS/ML 1ML VIAL IVPUSH PRN (18:09)
--- NOTE | 2018-10-16 19:10 | CONSULT ---
Consultation: REQUESTING PROVIDER:Dr. Mosquera CONSULT REQUEST: We have been asked to medically evaluate this patient for post- op monitoring. HISTORY OF PRESENT ILLNESS: Patient is an 88 year old male with past medical history of dementia, presented from [facility], due to cold left foot accompanied with pain. CTA was done which revealed. He was started on heparin drip. Vascular surgery was consulted. Patient was brought in to OR today and underwent LLE angiogram, open thrombectomy of femoral artery, popliteal artery and tibial artery. Elizabeth- operatively, patient was found to have embolus in the entire left leg. REVIEW OF SYSTEMS: CONSTITUTIONAL: Absent: fever, chills, diaphoresis, generalized weakness, malaise, loss of appetite, weight change HEENT: Absent: rhinorrhea, nasal congestion, throat pain, throat swelling, difficulty swallowing, mouth swelling, ear pain, eye pain, visual changes CARDIOVASCULAR: Absent: chest pain, syncope, palpitations, irregular heart rate, lightheadedness , peripheral edema RESPIRATORY: Absent: cough, shortness of breath, dyspnea with exertion, orthopnea, wheezing, stridor, hemoptysis GASTROINTESTINAL: Absent: abdominal pain, abdominal distension, nausea, vomiting, diarrhea, constipation, melena, hematochezia GENITOURINARY: Absent: dysuria, frequency, urgency, hesitancy, hematuria, flank pain, genital pain MUSCULOSKELETAL: Absent: myalgia, arthralgia, joint swelling, back pain, neck pain SKIN: Absent: rash, itching, pallor HEMATOLOGIC/IMMUNOLOGIC: Absent: easy bleeding, easy bruising, lymphadenopathy, frequent infections ENDOCRINE: Absent: unexplained weight gain, unexplained weight loss, heat intolerance, cold intolerance NEUROLOGIC: Absent: headache, focal weakness or paresthesias, dizziness, unsteady gait, seizure, mental status changes, bladder or bowel incontinence PSYCHIATRIC: Absent: anxiety, depression, suicidal or homicidal ideation, hallucinations. PHYSICAL EXAMINATION Vital Signs - 24 hr 10/15/18 10/15/18 10/16/18 21:00 22:00 05:58 Temperature 97.9 F 98.4 F Pulse Rate 98 H 75 Respiratory 20 20 20 Rate Blood Pressure 103/50 L 148/70 O2 Sat by Pulse 96 Oximetry (%) 10/16/18 10/16/18 10/16/18 09:00 10:00 13:46 Temperature 98.3 F 98.4 F Pulse Rate 76 76 Respiratory 18 20 Rate Blood Pressure 123/57 L 153/86 O2 Sat by Pulse 95 Oximetry (%) GENERAL: sedated, no acute distress EYES:PERRLA, sclera anicteric, conjunctiva clear. HEENT:Dry mucous membranes.. LUNGS: Breath sounds equal, clear to auscultation bilaterally. HEART: Regular rate and rhythm, normal S1 and S2 without murmur, rub or gallop. ABDOMEN: Soft, nontender, not distended, normoactive bowel sounds. UPPER EXTREMITIES: 2+ pulses, warm, well-perfused. No peripheral edema. LOWER EXTREMITIES:LLE: cold feet, gangrenous 4th toe, DP and TP not palpable. RLE: +2 pulses, warm, well-perfused. No peripheral edema. NEUROLOGICAL: Sedated, but can follow commands. Laboratory Results - last 24 hr 10/15/18 10/16/18 10/16/18 20:50 03:18 06:00 WBC 10.9 H RBC 4.11 Hgb 11.5 L Hct 35.1 L MCV 85.5 MCH 27.9 MCHC 32.7 RDW 14.5 Plt Count 351 MPV 8.0 PTT (Actin FS) 49.9 H 74.7 H Sodium Potassium Chloride Carbon Dioxide Anion Gap BUN Creatinine Est GFR (CKD-EPI)AfAm Est GFR (CKD-EPI)NonAf Random Glucose Calcium Phosphorus Magnesium 10/16/18 10/16/18 06:00 06:00 WBC RBC Hgb Hct MCV MCH MCHC RDW Plt Count MPV PTT (Actin FS) 86.0 H Sodium 135 L Potassium 3.9 Chloride 101 Carbon Dioxide 25 Anion Gap 9 BUN 17 Creatinine 0.9 Est GFR (CKD-EPI)AfAm 89.32 Est GFR (CKD-EPI)NonAf 77.06 Random Glucose 97 Calcium 8.4 L Phosphorus 3.8 Magnesium 2.6 H Active Medications Generic Name Dose Route Start Last Admin Trade Name Freq PRN Reason Stop Dose Admin Fentanyl 25 mcg 10/16/18 16:20 Sublimaze Injection - IVPUSH 10/17/18 03:00 Q5M PRN PAIN-PACU ORDER X 4 DOSES ONLY Heparin Sodium (Porcine) 1,000 unit 10/16/18 18:09 Heparin - IVPUSH PRN PRN Heparin Heparin Sodium (Porcine) 5,000 unit 10/16/18 18:09 Heparin - IVPUSH PRN PRN Heparin HEPARIN SOD,PORK IN 0.45% NACL 25,000 units in 500 mls @ 20 mls/hr 10/16/18 18 :15 Heparin-1/2ns 25,000 Units/500 IVPB TITR AVINASH Protocol 1,000 UNITS/HR Ketorolac Tromethamine 15 mg 10/14/18 20:40 Toradol Injection - IVPUSH 10/19/18 20:39 Q6H PRN PAIN LEVEL 1 - 3 Morphine Sulfate 1 mg 10/14/18 20:40 Morphine Sulfate IVPUSH Q4H PRN PAIN LEVEL 4 - 6 Ondansetron HCl 4 mg 10/16/18 16:20 Zofran Injection IVPUSH Q6H PRN NAUSEA AND/OR VOMITING Oxycodone HCl 5 mg 10/16/18 16:20 Roxicodone - PO 10/17/18 16:19 Q4H PRN PAIN LEVEL 1-5 Promethazine HCl 12.5 mg 10/16/18 16:20 Phenergan Injection - IVPUSH Q6H PRN NAUSEA-FOR RESCUE AFTER 15 MIN ASSESSMENT/PLAN: naomi is an 88 year old male with past medical history of dementia, presented from [facility], due to cold left foot accompanied with pain. Patient was brought in to OR today and underwent LLE angiogram, open thrombectomy of femoral artery, popliteal artery and tibial artery. #Neuro -hx of dementia, patient currently still sedated -will continue to monitor #Cardiovascular -left leg ischemia 2/2 LLE embolus -POD 0: Open thrombectomy of femoral artery, popliteal artery, tibial artery -continue heparin drip -Vascular surgery (Dr. Mosquera) consulted. #Pulmo -on nasal cannula, keep SpO2>90% -incentive spirometry #GI -Diabetic/sodium restricted diet #Renal -renal function stable -will continue to monitor #FEN -Not on any standing fluids -Electrolytes wnl, routine bmp monitoring -Diabetic/Sodium restricted diet #Prophylaxis -on heparin drip #Disposition -full code -ICU monitoring Dispo: We will continue to follow the patient. Thank you for this consultative opportunity. Visit type - Emergency Visit Emergency Visit: Yes ED Registration Date: 10/14/18 Care time: The patient presented to the Emergency Department on the above date and was hospitalized for further evaluation of their emergent condition. - New Patient This patient is new to me today: Yes Date on this admission: 10/17/18 - Critical Care Critical Care patient: Yes Total Critical Care Time (in minutes): 37 Critical Care Statement: The care of this patient involved high complexity decision making to prevent further life threatening deterioration of the patient 's condition and/or to evaluate & treat vital organ system(s) failure or risk of failure.
[2018-10-16] MEDS ORDERED: MORPHINE SULFATE 2 MG/ML VIAL IVPUSH PRN (20:12)
[2018-10-16] MEDS ORDERED: KETOROLAC TROMETHAMINE 15 MG/ML VIAL IVPUSH PRN (20:12)
[2018-10-16] MEDS ORDERED: CHLORHEXIDINE GLUCONATE 4% CLEANSER FOR DECOLONIZATION TP SCH (22:00)
[2018-10-16] MEDS ORDERED: MUPIROCIN 2% TOPICAL OINTMENT FOR DECOLONIZATION NS SCH (22:00)
[2018-10-17 06:39] LABS: HEMATOCRIT 34.5 % (35.4-49); HEMOGLOBIN 11.3 GM/dL (11.7-16.9); MCH 28.1 pg (25.7-33.7); MCHC 32.9 g/dl (32.0-35.9); MEAN CELL VOLUME 85.2 fl (80-96); MEAN PLT VOLUME 7.9 fl (7.5-11.1); PLATELET COUNT 403 K/MM3 (134-434); RBC 4.04 M/mm3 (4.00-5.60); RDW 14.4 % (11.9-15.9); WHITE BLOOD COUNT 11.6 K/mm3 (4.0-10.0)
[2018-10-17 06:55] LABS: CALCIUM 8.5 mg/dL (8.5-10.1); MAGNESIUM 2.4 mg/dL (1.8-2.4); PHOSPHOROUS 4.4 mg/dL (2.5-4.9); POTASSIUM 4.7 mmol/L (3.5-5.1)
--- NOTE | 2018-10-17 08:15 | PN ---
Progress Note (short form) - Note Progress Note: Anesthesia Post op Pt seen and examined S:awake O: Vital Signs Temperature 97.5 F L 10/16/18 21:00 Pulse Rate 75 10/17/18 08:00 Respiratory Rate 21 H 10/17/18 08:00 Blood Pressure 107/83 10/17/18 08:00 O2 Sat by Pulse Oximetry (%) 100 10/16/18 20:57 CBC, BMP 10/17/18 05:30 10/17/18 05:30 A/P: Current Active Problems Arterial occlusion (Acute) s/p open thrombectomy left lower extremely Doing well post op Continue current care Arnol Donato MD
--- NOTE | 2018-10-17 08:49 | PN ---
Progress Note (short form) - Note Progress Note: Patient is better, no fever or chills, patient is more awake. seen and examined in the ICU. s/p open thrombectomy. Vital Signs Temperature 97.5 F L 10/16/18 21:00 Pulse Rate 75 10/17/18 08:00 Respiratory Rate 21 H 10/17/18 08:00 Blood Pressure 107/83 10/17/18 08:00 O2 Sat by Pulse Oximetry (%) 100 10/16/18 20:57 Initial Vital Signs Temp Pulse Resp BP Pulse Ox 97.2 F L 86 20 138/80 99 10/14/18 11:13 10/14/18 11:13 10/14/18 11:13 10/14/18 11:13 10/14/18 11:13 GEN: alert, oriented to self only, no acute distress HEENT: PERRL, dry mucus membranes HEART: RRR, no murmurs noted LUNGS: CTA b/l, no wheezes noted ABDOMEN: Soft, nontender EXTREMITIES: LLE: cool totouch , non-pitting edema, no palpable pulse on the left up to the popliteal . Left dorsum of the foot skin tear, not infected. RLE: good pulses, warm NEURO: CNII-XII grossly in tact, no gross deficits CBCD WBC 11.6 K/mm3 (4.0-10.0) H 10/17/18 05:30 RBC 4.04 M/mm3 (4.00-5.60) 10/17/18 05:30 Hgb 11.3 GM/dL (11.7-16.9) L 10/17/18 05:30 Hct 34.5 % (35.4-49) L 10/17/18 05:30 MCV 85.2 fl (80-96) 10/17/18 05:30 MCHC 32.9 g/dl (32.0-35.9) 10/17/18 05:30 RDW 14.4 % (11.9-15.9) 10/17/18 05:30 Plt Count 403 K/MM3 (134-434) 10/17/18 05:30 MPV 7.9 fl (7.5-11.1) 10/17/18 05:30 CMP Sodium 137 mmol/L (136-145) 10/17/18 05:30 Potassium 4.7 mmol/L (3.5-5.1) 10/17/18 05:30 Chloride 101 mmol/L (98-107) 10/17/18 05:30 Carbon Dioxide 27 mmol/L (21-32) 10/17/18 05:30 Anion Gap 10 MMOL/L (8-16) 10/17/18 05:30 BUN 18 mg/dL (7-18) 10/17/18 05:30 Creatinine 1.0 mg/dL (0.55-1.3) 10/17/18 05:30 Random Glucose 114 mg/dL (74-106) H 10/17/18 05:30 Calcium 8.5 mg/dL (8.5-10.1) 10/17/18 05:30 Total Bilirubin 0.3 mg/dL (0.2-1) 10/14/18 13:05 AST 20 U/L (15-37) 10/14/18 13:05 ALT 23 U/L (13-61) 10/14/18 13:05 Alkaline Phosphatase 91 U/L (45-117) 10/14/18 13:05 Total Protein 7.0 g/dl (6.4-8.2) 10/14/18 13:05 Albumin 2.4 g/dl (3.4-5.0) L 10/14/18 13:05 Current Medications Generic Name Dose Route Start Last Admin Trade Name Freq PRN Reason Stop Dose Admin Heparin Sodium (Porcine) 1,000 unit 10/16/18 18:09 Heparin - IVPUSH PRN PRN Heparin Heparin Sodium (Porcine) 5,000 unit 10/16/18 18:09 Heparin - IVPUSH PRN PRN Heparin HEPARIN SOD,PORK IN 0.45% NACL 25,000 units in 500 mls @ 20 mls/hr 10/16/18 18 :15 10/16/18 21:00 Heparin-1/2ns 25,000 Units/500 IVPB 1,000 units/hr TITR AVINASH 20 mls/hr Administration Protocol 1,000 UNITS/HR Ketorolac Tromethamine 15 mg 10/16/18 20:12 Toradol Injection - IVPUSH 10/19/18 20:39 Q6H PRN PAIN LEVEL 1 - 3 Morphine Sulfate 1 mg 10/16/18 20:12 Morphine Sulfate IVPUSH Q4H PRN PAIN LEVEL 4 - 6 Ondansetron HCl 4 mg 10/16/18 20:12 Zofran Injection IVPUSH Q6H PRN NAUSEA AND/OR VOMITING Oxycodone HCl 5 mg 10/16/18 20:12 Roxicodone - PO 10/17/18 16:19 Q4H PRN PAIN LEVEL 1-5 Promethazine HCl 12.5 mg 10/16/18 20:12 Phenergan Injection - IVPUSH Q6H PRN NAUSEA-FOR RESCUE AFTER 15 MIN Home Medications Medication Instructions Recorded Lanolin Alcohol/Mo/W.pet/[place] 113 gm TP BID 10/14/18 [Eucerin Creme] Silver Sulfadiazine 1% Top Cr 1 applic TP ONCE 10/14/18 [Silvadene] EKG noted (sinus rhythm with PACs, rate 87, Qtc 454) ASSESSMENT AND PLAN: Patient is a 88 year old male with PMhx of dementia presented to ED for having one week of left cold foot and swelling of the L foot. #POD #1 s/p LLE anigogram/open thrombectomy for Ischemic Left Foot by Dr. Mosquera.. Embolus was found in entire left leg. Continue heparin ggt, pain control. doppler pulse checks, pain control, disposition per surgery # Dementia hx DVT Px: heparin ggt Visit type - Emergency Visit Emergency Visit: Yes ED Registration Date: 10/14/18 Care time: The patient presented to the Emergency Department on the above date and was hospitalized for further evaluation of their emergent condition. - New Patient This patient is new to me today: No - Critical Care Critical Care patient: No
[2018-10-17] MEDS: HEPARIN NA (PORCINE) 5,000 UNITS/ML 1ML VIAL IVPUSH PRN ×2 (09:00→17:23)
--- NOTE | 2018-10-17 11:03 | PN ---
Teaching Attending Note Name of Resident: Eric Rm ATTENDING PHYSICIAN STATEMENT I saw and evaluated the patient. I reviewed the resident's note and discussed the case with the resident. I agree with the resident's findings and plan as documented. SUBJECTIVE: Pt seen and examined in the ICU. s/p open thrombectomy. Denies leg pain, numbness or weakness. OBJECTIVE: Vital Signs Period Temp Pulse Resp BP Sys/Quinteros Pulse Ox Last 24 Hr 97.5 F-98.4 F 60-88 11-21 101-163/54-100 100-100 Intake & Output 10/14/18 10/15/18 10/16/18 10/17/18 23:59 23:59 23:59 23:59 Intake Total 1292 736 266.1 Balance 1292 736 266.1 Weight 67.132 kg 66.678 kg 66.678 kg Gen: NAD at rest Heart: RRR Lung: decreased breath sounds at the bases Abd: soft, nontender Ext: no edema, cool to touch CBC, BMP 10/17/18 05:30 10/17/18 05:30 Active Medications Heparin Sodium (Porcine) (Heparin -) 1,000 unit IVPUSH PRN PRN PRN Reason: Heparin Last Admin: 10/17/18 09:00 Dose: 1,000 unit Heparin Sodium (Porcine) (Heparin -) 5,000 unit IVPUSH PRN PRN PRN Reason: Heparin HEPARIN SOD,PORK IN 0.45% NACL (Heparin-1/2ns 25,000 Units/500) 25,000 units in 500 mls @ 20 mls/hr IVPB TITR AVINASH; Protocol Last Admin: 10/16/18 21:00 Dose: 1,000 units/hr, 20 mls/hr Ketorolac Tromethamine (Toradol Injection -) 15 mg IVPUSH Q6H PRN PRN Reason: PAIN LEVEL 1 - 3 Stop: 10/19/18 20:39 Morphine Sulfate (Morphine Sulfate) 1 mg IVPUSH Q4H PRN PRN Reason: PAIN LEVEL 4 - 6 Ondansetron HCl (Zofran Injection) 4 mg IVPUSH Q6H PRN PRN Reason: NAUSEA AND/OR VOMITING Oxycodone HCl (Roxicodone -) 5 mg PO Q4H PRN PRN Reason: PAIN LEVEL 1-5 Stop: 10/17/18 16:19 Promethazine HCl (Phenergan Injection -) 12.5 mg IVPUSH Q6H PRN PRN Reason: NAUSEA-FOR RESCUE AFTER 15 MIN ASSESSMENT AND PLAN: LLE ischemia/Femoral/Popliteal/Tibial Emboli s/p LLE anigogram/open thrombectomy Dementia - pulse checks - continue anticoagulation to therapeutic range - pain control - disposition per surgery
--- NOTE | 2018-10-17 12:22 | PN ---
Progress Note (short form) - Note Progress Note: ID CONSULT DICTATED POD # 1 OPEN THROMBECTOMY LEUKOCYTOSIS IMPROVED NO EVIDENCE OF INFECTION OBSERVE OFF ANTIBIOTICS
--- NOTE | 2018-10-17 12:46 | CONS ---
INFECTIOUS DISEASE CONSULTATION DATE OF CONSULTATION: DATE OF DICTATION: 10/17/2018 HISTORY OF PRESENT ILLNESS: The patient is an 88-year-old male who is evaluated for leukocytosis. History was obtained from the chart, as he suffers from dementia and cannot give a history. The patient was admitted from a detention facility on October 14, 2018, with a 1-week history of worsening swelling, cyanosis and coolness of his distal left lower extremity. He was evaluated in the emergency room, where he was found to have an ischemic left lower extremity. He was started on IV heparin. A CT angio was performed and showed an occluded left superficial femoral artery. He was taken to the operating room on October 16, 2018, where a left lower extremity angiogram was performed and an open thrombectomy of the left femoral, popliteal and tibial arteries. His hospital course was complicated by leukocytosis of 16,000. He has been afebrile. He is awake, but confused, unable to offer any additional details. He denies any pain. PAST MEDICAL HISTORY: Positive for dementia. ALLERGIES: No known allergies. MEDICATIONS: Include Silvadene and Eucerin cream. SYSTEMS REVIEW: Neurologic: Positive for dementia. Cardiac: Negative chest pain or palpitations. Respiratory: Negative cough or sputum production. Gastrointestinal: Negative vomiting or diarrhea. Genitourinary: Negative for urinary tract infection. LABORATORY DATA: White count 11.6, hematocrit 34.5, platelet count 403. Creatinine 1.0 Chest x-ray negative. PHYSICAL EXAMINATION: General: On physical examination, he is awake. He is in no acute distress. Vital Signs: Temperature 97.5, blood pressure 107/83, pulse 75 regular, respirations 21 per minute. Eyes: Sclerae are anicteric. Heart: Heart sounds S1, S2. Lungs: Clear. Abdomen: Soft and nontender. Left lower extremity: The distal left lower extremity is dusky appearing and cool to touch. There are superficial skin tears present on the pretibial area and dorsum of the foot; they do not appear to be infected. IMPRESSION: 1. Postoperative day number 1, open thrombectomy left lower extremity. 2. Leukocytosis; improved. No evidence of active infection. Will observe off antibiotic therapy. Obtain cultures for persistent leukocytosis or development of fever. INDIA MORRISSEY M.D. [id number]
[2018-10-17 13:42] LABS: PLATELET ESTIMATE ADEQUATE
--- NOTE | 2018-10-17 15:05 | PN ---
Progress Note, Physician History of Present Illness: Seen and examined at bedside. No bleeding event, fever, chills, or leg pain overnight. - Current Medication List Current Medications: Active Medications Heparin Sodium (Porcine) (Heparin -) 1,000 unit IVPUSH PRN PRN PRN Reason: Heparin Last Admin: 10/17/18 09:00 Dose: 1,000 unit Heparin Sodium (Porcine) (Heparin -) 5,000 unit IVPUSH PRN PRN PRN Reason: Heparin HEPARIN SOD,PORK IN 0.45% NACL (Heparin-1/2ns 25,000 Units/500) 25,000 units in 500 mls @ 20 mls/hr IVPB TITR AVINASH; Protocol Last Admin: 10/16/18 21:00 Dose: 1,000 units/hr, 20 mls/hr Ketorolac Tromethamine (Toradol Injection -) 15 mg IVPUSH Q6H PRN PRN Reason: PAIN LEVEL 1 - 3 Stop: 10/19/18 20:39 Morphine Sulfate (Morphine Sulfate) 1 mg IVPUSH Q4H PRN PRN Reason: PAIN LEVEL 4 - 6 Ondansetron HCl (Zofran Injection) 4 mg IVPUSH Q6H PRN PRN Reason: NAUSEA AND/OR VOMITING Oxycodone HCl (Roxicodone -) 5 mg PO Q4H PRN PRN Reason: PAIN LEVEL 1-5 Stop: 10/17/18 16:19 Promethazine HCl (Phenergan Injection -) 12.5 mg IVPUSH Q6H PRN PRN Reason: NAUSEA-FOR RESCUE AFTER 15 MIN - Objective Vital Signs: Vital Signs Temperature 98.4 F 10/17/18 14:00 Pulse Rate 74 10/17/18 14:00 Respiratory Rate 21 H 10/17/18 14:00 Blood Pressure 128/71 10/17/18 14:00 O2 Sat by Pulse Oximetry (%) 96 10/17/18 09:00 Constitutional: Yes: No Distress Cardiovascular: Yes: Regular Rate and Rhythm, S1, S2 Respiratory: Yes: CTA Bilaterally Gastrointestinal: Yes: Normal Bowel Sounds, Soft Extremities: Yes: Cold, Delayed Capillary Refill Peripheral Pulses WNL: Yes (dopplerable pulses) Wound/Incision: Yes: Dressing Dry and Intact Neurological: Yes: Alert, Oriented Labs: CBC, BMP 10/17/18 05:30 10/17/18 05:30 INR, PTT INR 1.34 (0.83-1.09) H 10/14/18 13:05 Impression/Plan Impression/Plan: 88 year old male with past medical history of dementia, presented from [facility], due to cold left foot accompanied with pain. Patient was brought in to OR today and underwent LLE angiogram, open thrombectomy of femoral artery , popliteal artery and tibial artery. Vascular: left leg ischemia 2/2 LLE embolus - POD 1: Open thrombectomy of femoral artery, popliteal artery, tibial artery - continue heparin drip w/ boluses as needed FEN -Not on any standing fluids -Electrolytes wnl, routine bmp monitoring -Diabetic/Sodium restricted diet Prophylaxis -on heparin drip #Disposition -full code -ICU monitoring Dispo: Will cont to monitor the pt overnight, floor tomorrow Eric Rm MD ICD resident Visit type - Emergency Visit Emergency Visit: No - New Patient This patient is new to me today: No - Critical Care Critical Care patient: Yes Total Critical Care Time (in minutes): 35 Critical Care Statement: The care of this patient involved high complexity decision making to prevent further life threatening deterioration of the patient 's condition and/or to evaluate & treat vital organ system(s) failure or risk of failure.
[2018-10-17] MEDS ORDERED: PT OWN MED DRAWER 7, Y5N ONE (16:24)
[2018-10-17] MEDS: HEPARIN SOD,PORK IN 0.45% NACL 25,000 UNITS/500 ML INFUS.BAG IVPB SCH ×2 (16:38→16:40)
[2018-10-17] MEDS: morphine SULFATE 4 MG/ML VIAL IVPUSH PRN (23:44)
[2018-10-18 06:53] LABS: HEMATOCRIT 31.7 % (35.4-49); HEMOGLOBIN 10.6 GM/dL (11.7-16.9); MCH 28.2 pg (25.7-33.7); MCHC 33.4 g/dl (32.0-35.9); MEAN CELL VOLUME 84.6 fl (80-96); MEAN PLT VOLUME 7.7 fl (7.5-11.1); PLATELET COUNT 376 K/MM3 (134-434); RBC 3.75 M/mm3 (4.00-5.60); RDW 14.2 % (11.9-15.9); WHITE BLOOD COUNT 9.6 K/mm3 (4.0-10.0)
[2018-10-18 07:13] LABS: CALCIUM 7.6 mg/dL (8.5-10.1); CREATININE 1.1 mg/dL (0.55-1.3); MAGNESIUM 2.3 mg/dL (1.8-2.4); POTASSIUM 4.2 mmol/L (3.5-5.1)
--- NOTE | 2018-10-18 08:29 | PN ---
Physical Exam: SUBJECTIVE: Patient seen and examined at bedside. POD 2. No acute overnight events. Pt states he feels fine. No active complaints. Popliteal pulse not palpable but found with doppler. OBJECTIVE: Vital Signs Period Temp Pulse Resp BP Sys/Quinteros Pulse Ox Last 24 Hr 98.3 F-99.3 F 71-99 13-30 96-145/45-91 95-96 GENERAL: The patient is awake, alert, and Ox1, in no acute distress. HEAD: Normal with no signs of trauma. EYES: PERRL, extraocular movements intact, sclera anicteric, conjunctiva clear. No ptosis. . LUNGS: Breath sounds equal, clear to auscultation bilaterally, no wheezes, no crackles, no accessory muscle use. HEART: Regular rate and rhythm, S1, S2 without murmur, rub or gallop. ABDOMEN: Soft, nontender, nondistended, normoactive bowel sounds, no guarding, no rebound EXTREMITIES: 1+ pulses in RLE. No L DP or popliteal pulse palpated. LLE cold distal to mid-calf. NEUROLOGICAL: Cranial nerves II through XII grossly intact. Normal speech, gait not observed. SKIN: L foot cold and blackened Laboratory Results - last 24 hr 10/17/18 10/17/18 10/18/18 05:30 16:30 00:15 WBC 11.6 H RBC 4.04 Hgb 11.3 L Hct 34.5 L MCV 85.2 MCH 28.1 MCHC 32.9 RDW 14.4 Plt Count 403 MPV 7.9 Total Counted 100 Neutrophils % (Manual) 89.0 H Band Neutrophils % 1.0 Lymphocytes % (Manual) 4.0 L Monocytes % (Manual) 6 Platelet Estimate Adequate Jim Cells 1+ PTT (Actin FS) 41.5 H 86.0 H Sodium Potassium Chloride Carbon Dioxide Anion Gap BUN Creatinine Est GFR (CKD-EPI)AfAm Est GFR (CKD-EPI)NonAf Random Glucose Calcium Magnesium 10/18/18 10/18/18 10/18/18 05:30 05:30 05:30 WBC 9.6 RBC 3.75 L Hgb 10.6 L Hct 31.7 L MCV 84.6 MCH 28.2 MCHC 33.4 RDW 14.2 Plt Count 376 MPV 7.7 Total Counted Neutrophils % (Manual) Band Neutrophils % Lymphocytes % (Manual) Monocytes % (Manual) Platelet Estimate Jim Cells PTT (Actin FS) 61.2 H Sodium 141 Potassium 4.2 Chloride 105 Carbon Dioxide 28 Anion Gap 8 BUN 19 H Creatinine 1.1 Est GFR (CKD-EPI)AfAm 70.08 Est GFR (CKD-EPI)NonAf 60.46 Random Glucose 116 H Calcium 7.6 L Magnesium 2.3 Active Medications Generic Name Dose Route Start Last Admin Trade Name Freq PRN Reason Stop Dose Admin Heparin Sodium (Porcine) 1,000 unit 10/16/18 18:09 10/17/18 17:23 Heparin - IVPUSH 1,000 unit PRN PRN Administration Heparin Heparin Sodium (Porcine) 5,000 unit 10/16/18 18:09 Heparin - IVPUSH PRN PRN Heparin HEPARIN SOD,PORK IN 0.45% NACL 25,000 units in 500 mls @ 20 mls/hr 10/16/18 18 :15 10/18/18 01:48 Heparin-1/2ns 25,000 Units/500 IVPB 1,100 units/hr TITR AVINASH 22 mls/hr Titration Protocol 1,000 UNITS/HR Ketorolac Tromethamine 15 mg 10/16/18 20:12 Toradol Injection - IVPUSH 10/19/18 20:39 Q6H PRN PAIN LEVEL 1 - 3 Morphine Sulfate 1 mg 10/17/18 22:30 10/17/18 23:44 Morphine Sulfate IVPUSH 1 mg Q4H PRN Administration PAIN LEVEL 4 - 6 Ondansetron HCl 4 mg 10/16/18 20:12 Zofran Injection IVPUSH Q6H PRN NAUSEA AND/OR VOMITING Promethazine HCl 12.5 mg 10/16/18 20:12 Phenergan Injection - IVPUSH Q6H PRN NAUSEA-FOR RESCUE AFTER 15 MIN ASSESSMENT/PLAN: 88yo M with PMH of dementia, presenting from [facility] due to cold left foot accompanied with pain. Patient was brought in to OR today and underwent LLE angiogram, open thrombectomy of femoral artery, popliteal artery and tibial artery. NEURO -Baseline dementia VASCULAR -vascular consulting (Dr. Mosquera) -left leg ischemia 2/2 LLE embolus -POD 2: Open thrombectomy of femoral artery, popliteal artery, tibial artery -heparin drip w/ boluses as needed -Monitor PTT -Rpt angiogram/thrombolysis AM FEN -Diabetic/Sodium restricted diet -NPO at midnight Prophylaxis -heparin drip Dispo: OR in the AM. Visit type - Emergency Visit Emergency Visit: Yes ED Registration Date: 10/14/18 Care time: The patient presented to the Emergency Department on the above date and was hospitalized for further evaluation of their emergent condition. - New Patient This patient is new to me today: Yes Date on this admission: 10/18/18 - Critical Care Critical Care patient: Yes Total Critical Care Time (in minutes): 40 Critical Care Statement: The care of this patient involved high complexity decision making to prevent further life threatening deterioration of the patient 's condition and/or to evaluate & treat vital organ system(s) failure or risk of failure.
--- NOTE | 2018-10-18 10:28 | PN ---
Progress Note (short form) - Note Progress Note: Vascular Surgery Pt seen and examined. Left leg is warm to below the knee. calf and foot cool to touch. No palpable popliteal pulse. Spoke to Mishel (jeffrey) at length. Pt had embolus to entire leg. We were able to remove clot to below the knee. Pt now on blood thinners but still not open. Spoke to mishel about the fact that his ischemia has been going on for a week. I was pt on fri in [place] and sent pt to ER. Spoke to jeffrey about pt possibly getting a BKA. We will try to drip TPA blossom to open up tibial vessels. There is a risk of bleeding due to the open operation performed on friday. NPO past midnight Ton Mosquera dO
--- NOTE | 2018-10-18 10:56 | PN ---
Teaching Attending Note Name of Resident: Josefa Crenshaw ATTENDING PHYSICIAN STATEMENT I saw and evaluated the patient. I reviewed the resident's note and discussed the case with the resident. I agree with the resident's findings and plan as documented. SUBJECTIVE: Pt seen and examined in the ICU. Left leg cool, no popliteal pulse palpated. Pt denies pain. OBJECTIVE: Vital Signs Period Temp Pulse Resp BP Sys/Quinteros Pulse Ox Last 24 Hr 98.3 F-99.3 F 71-99 13-30 96-145/45-91 95-96 Intake & Output 10/15/18 10/16/18 10/17/18 10/18/18 23:59 23:59 23:59 23:59 Intake Total 2795 685 1917.1 264 Balance 4293 501 9717.1 264 Weight 66.678 kg 66.678 kg 64 kg Gen: NAD at rest Heart: RRR Lung: decreased breath sounds at the bases Abd: soft, nontender Ext: no edema CBC, BMP 10/18/18 05:30 10/18/18 05:30 Active Medications Heparin Sodium (Porcine) (Heparin -) 1,000 unit IVPUSH PRN PRN PRN Reason: Heparin Last Admin: 10/17/18 17:23 Dose: 1,000 unit Heparin Sodium (Porcine) (Heparin -) 5,000 unit IVPUSH PRN PRN PRN Reason: Heparin HEPARIN SOD,PORK IN 0.45% NACL (Heparin-1/2ns 25,000 Units/500) 25,000 units in 500 mls @ 20 mls/hr IVPB TITR AVINASH; Protocol Last Titration: 10/18/18 01:48 Dose: 1,100 units/hr, 22 mls/hr Ketorolac Tromethamine (Toradol Injection -) 15 mg IVPUSH Q6H PRN PRN Reason: PAIN LEVEL 1 - 3 Stop: 10/19/18 20:39 Morphine Sulfate (Morphine Sulfate) 1 mg IVPUSH Q4H PRN PRN Reason: PAIN LEVEL 4 - 6 Last Admin: 10/17/18 23:44 Dose: 1 mg Ondansetron HCl (Zofran Injection) 4 mg IVPUSH Q6H PRN PRN Reason: NAUSEA AND/OR VOMITING Promethazine HCl (Phenergan Injection -) 12.5 mg IVPUSH Q6H PRN PRN Reason: NAUSEA-FOR RESCUE AFTER 15 MIN ASSESSMENT AND PLAN: LLE ischemia/Femoral/Popliteal/Tibial Emboli s/p LLE anigogram/open thrombectomy Dementia - pulse checks - continue anticoagulation to therapeutic range - surgery considering repeat angiogram/thrombolysis - pain control - continue ICU monitoring
[2018-10-18] MEDS: morphine SULFATE 4 MG/ML VIAL IVPUSH PRN ×3 (11:02→21:52)
--- NOTE | 2018-10-18 13:12 | PN ---
Physical Exam: SUBJECTIVE: Patient seen and examined pt lying comfortably in bed Denies any new complaints Denies pain in calf muscles denies fever and chills. OBJECTIVE: Vital Signs Period Temp Pulse Resp BP Sys/Quinteros Pulse Ox Last 24 Hr 98.3 F-99.3 F 71-99 13-30 96-145/45-91 95-97 GEN: alert, oriented to self only, no acute distress HEENT: PERRL, dry mucus membranes HEART: RRR, no murmurs noted LUNGS: CTA b/l, no wheezes noted ABDOMEN: Soft, nontender EXTREMITIES: LLE: left leg below mid leg, dusky, no palpable poplitial pulses, bandage clean and dry, Laboratory Results - last 24 hr 10/17/18 10/17/18 10/18/18 05:30 16:30 00:15 WBC RBC Hgb Hct MCV MCH MCHC RDW Plt Count MPV Total Counted 100 Neutrophils % (Manual) 89.0 H Band Neutrophils % 1.0 Lymphocytes % (Manual) 4.0 L Monocytes % (Manual) 6 Platelet Estimate Adequate [place] Cells 1+ PTT (Actin FS) 41.5 H 86.0 H Sodium Potassium Chloride Carbon Dioxide Anion Gap BUN Creatinine Est GFR (CKD-EPI)AfAm Est GFR (CKD-EPI)NonAf Random Glucose Calcium Magnesium 10/18/18 10/18/18 10/18/18 05:30 05:30 05:30 WBC 9.6 RBC 3.75 L Hgb 10.6 L Hct 31.7 L MCV 84.6 MCH 28.2 MCHC 33.4 RDW 14.2 Plt Count 376 MPV 7.7 Total Counted Neutrophils % (Manual) Band Neutrophils % Lymphocytes % (Manual) Monocytes % (Manual) Platelet Estimate [place] Cells PTT (Actin FS) 61.2 H Sodium 141 Potassium 4.2 Chloride 105 Carbon Dioxide 28 Anion Gap 8 BUN 19 H Creatinine 1.1 Est GFR (CKD-EPI)AfAm 70.08 Est GFR (CKD-EPI)NonAf 60.46 Random Glucose 116 H Calcium 7.6 L Magnesium 2.3 Active Medications Generic Name Dose Route Start Last Admin Trade Name Freq PRN Reason Stop Dose Admin Heparin Sodium (Porcine) 1,000 unit 10/16/18 18:09 10/17/18 17:23 Heparin - IVPUSH 1,000 unit PRN PRN Administration Heparin Heparin Sodium (Porcine) 5,000 unit 10/16/18 18:09 Heparin - IVPUSH PRN PRN Heparin HEPARIN SOD,PORK IN 0.45% NACL 25,000 units in 500 mls @ 20 mls/hr 10/16/18 18 :15 10/18/18 01:48 Heparin-1/2ns 25,000 Units/500 IVPB 1,100 units/hr TITR AVINASH 22 mls/hr Titration Protocol 1,000 UNITS/HR Ketorolac Tromethamine 15 mg 10/16/18 20:12 Toradol Injection - IVPUSH 10/19/18 20:39 Q6H PRN PAIN LEVEL 1 - 3 Morphine Sulfate 1 mg 10/17/18 22:30 10/18/18 11:02 Morphine Sulfate IVPUSH 1 mg Q4H PRN Administration PAIN LEVEL 4 - 6 Ondansetron HCl 4 mg 10/16/18 20:12 Zofran Injection IVPUSH Q6H PRN NAUSEA AND/OR VOMITING Promethazine HCl 12.5 mg 10/16/18 20:12 Phenergan Injection - IVPUSH Q6H PRN NAUSEA-FOR RESCUE AFTER 15 MIN ASSESSMENT/PLAN:Patient is a 88 year old male with PMhx of dementia presented to ED for having one week of left cold foot and swelling of the L foot. 1) LLE ischemia/Femoral/Popliteal/Tibial Emboli s/p LLE anigogram/open thrombectomy POD 2 - pulse checks - continue anticoagulation to therapeutic range - surgery considering repeat angiogram/thrombolysis - pain control - watch for bleeding - npo after mid night 2) dementia fluid: orally allowed electrolyte: repeat diana m nutrition: npo after mid night. dvt pro: heparin drip dispo: in icu Visit type - Emergency Visit Emergency Visit: Yes ED Registration Date: 10/14/18 Care time: The patient presented to the Emergency Department on the above date and was hospitalized for further evaluation of their emergent condition. - New Patient This patient is new to me today: Yes Date on this admission: 10/18/18 - Critical Care Critical Care patient: Yes Total Critical Care Time (in minutes): 45 Critical Care Statement: The care of this patient involved high complexity decision making to prevent further life threatening deterioration of the patient 's condition and/or to evaluate & treat vital organ system(s) failure or risk of failure.
--- NOTE | 2018-10-18 14:33 | PN ---
Teaching Attending Note Name of Resident: Kd Claros ATTENDING PHYSICIAN STATEMENT I saw and evaluated the patient. I reviewed the resident's note and discussed the case with the resident. I agree with the resident's findings and plan as documented. SUBJECTIVE: No new changes. comfortable with no acute distress. OBJECTIVE: Vital Signs Temperature 98.7 F 10/18/18 10:00 Pulse Rate 84 10/18/18 12:00 Respiratory Rate 22 H 10/18/18 12:00 Blood Pressure 118/70 10/18/18 12:00 O2 Sat by Pulse Oximetry (%) 97 10/18/18 09:00 GEN: alert, oriented to self only, no acute distress HEENT: PERRL, dry mucus membranes HEART: RRR, no murmurs noted LUNGS: CTA b/l, no wheezes noted ABDOMEN: Soft, nontender EXTREMITIES: LLE: cool totouch , non-pitting edema, no palpable pulse on the left up to the popliteal area. Left dorsum of the foot skin tear, not infected. RLE: good pulses, warm NEURO: CNII-XII grossly in tact, no gross deficits CBCD WBC 9.6 K/mm3 (4.0-10.0) 10/18/18 05:30 RBC 3.75 M/mm3 (4.00-5.60) L 10/18/18 05:30 Hgb 10.6 GM/dL (11.7-16.9) L 10/18/18 05:30 Hct 31.7 % (35.4-49) L 10/18/18 05:30 MCV 84.6 fl (80-96) 10/18/18 05:30 MCHC 33.4 g/dl (32.0-35.9) 10/18/18 05:30 RDW 14.2 % (11.9-15.9) 10/18/18 05:30 Plt Count 376 K/MM3 (134-434) 10/18/18 05:30 MPV 7.7 fl (7.5-11.1) 10/18/18 05:30 CMP Sodium 141 mmol/L (136-145) 10/18/18 05:30 Potassium 4.2 mmol/L (3.5-5.1) 10/18/18 05:30 Chloride 105 mmol/L (98-107) 10/18/18 05:30 Carbon Dioxide 28 mmol/L (21-32) 10/18/18 05:30 Anion Gap 8 MMOL/L (8-16) 10/18/18 05:30 BUN 19 mg/dL (7-18) H 10/18/18 05:30 Creatinine 1.1 mg/dL (0.55-1.3) 10/18/18 05:30 Random Glucose 116 mg/dL (74-106) H 10/18/18 05:30 Calcium 7.6 mg/dL (8.5-10.1) L 10/18/18 05:30 Total Bilirubin 0.3 mg/dL (0.2-1) 10/14/18 13:05 AST 20 U/L (15-37) 10/14/18 13:05 ALT 23 U/L (13-61) 10/14/18 13:05 Alkaline Phosphatase 91 U/L (45-117) 10/14/18 13:05 Total Protein 7.0 g/dl (6.4-8.2) 10/14/18 13:05 Albumin 2.4 g/dl (3.4-5.0) L 10/14/18 13:05 Current Medications Generic Name Dose Route Start Last Admin Trade Name Freq PRN Reason Stop Dose Admin Heparin Sodium (Porcine) 1,000 unit 10/16/18 18:09 10/17/18 17:23 Heparin - IVPUSH 1,000 unit PRN PRN Administration Heparin Heparin Sodium (Porcine) 5,000 unit 10/16/18 18:09 Heparin - IVPUSH PRN PRN Heparin HEPARIN SOD,PORK IN 0.45% NACL 25,000 units in 500 mls @ 20 mls/hr 10/16/18 18 :15 10/18/18 01:48 Heparin-1/2ns 25,000 Units/500 IVPB 1,100 units/hr TITR AVINASH 22 mls/hr Titration Protocol 1,000 UNITS/HR Ketorolac Tromethamine 15 mg 10/16/18 20:12 Toradol Injection - IVPUSH 10/19/18 20:39 Q6H PRN PAIN LEVEL 1 - 3 Morphine Sulfate 1 mg 10/17/18 22:30 10/18/18 11:02 Morphine Sulfate IVPUSH 1 mg Q4H PRN Administration PAIN LEVEL 4 - 6 Ondansetron HCl 4 mg 10/16/18 20:12 Zofran Injection IVPUSH Q6H PRN NAUSEA AND/OR VOMITING Promethazine HCl 12.5 mg 10/16/18 20:12 Phenergan Injection - IVPUSH Q6H PRN NAUSEA-FOR RESCUE AFTER 15 MIN Home Medications Medication Instructions Recorded Lanolin Alcohol/Mo/W.pet/[place] 113 gm TP BID 10/14/18 [Eucerin Creme] Silver Sulfadiazine 1% Top Cr 1 applic TP ONCE 10/14/18 [Silvadene] EKG noted (sinus rhythm with PACs, rate 87, Qtc 454) ASSESSMENT AND PLAN: Patient is a 88 year old male with PMhx of dementia presented to ED for having one week of left cold foot and swelling of the L foot. #POD #2 s/p LLE anigogram/open thrombectomy for Ischemic Left Foot by Dr. Mosquera.. Embolus was found in entire left leg. Continue heparin ggt, pain control. doppler pulse checks, pain control. As per , possible BKA/drip TPA in am to open up tibial vessels, with increased to a risk of bleeding due to the open operation performed on friday, Dr. Mosquera discussed with the niece. NPO past midnight # Dementia hx DVT Px: heparin ggt
[2018-10-18] MEDS ORDERED: PT OWN MED DRAWER 7, Y5N ONE (16:36)
[2018-10-18] MEDS: HEPARIN SOD,PORK IN 0.45% NACL 25,000 UNITS/500 ML INFUS.BAG IVPB SCH ×2 (16:39→16:49)
[2018-10-19] MEDS: morphine SULFATE 4 MG/ML VIAL IVPUSH PRN ×3 (03:04→15:00)
[2018-10-19 06:34] LABS: HEMATOCRIT 31.3 % (35.4-49); HEMOGLOBIN 10.4 GM/dL (11.7-16.9); MCH 28.1 pg (25.7-33.7); MCHC 33.3 g/dl (32.0-35.9); MEAN CELL VOLUME 84.3 fl (80-96); MEAN PLT VOLUME 7.6 fl (7.5-11.1); PLATELET COUNT 363 K/MM3 (134-434); RBC 3.72 M/mm3 (4.00-5.60); RDW 14.4 % (11.9-15.9); WHITE BLOOD COUNT 8.4 K/mm3 (4.0-10.0)
[2018-10-19 07:06] LABS: ALBUMIN 2.2 g/dl (3.4-5.0); BILIRUBIN,TOTAL 0.3 mg/dL (0.2-1); MAGNESIUM 2.2 mg/dL (1.8-2.4); POTASSIUM 4.5 mmol/L (3.5-5.1); TOT PROT 6.3 g/dl (6.4-8.2)
[2018-10-19 07:07] LABS: INR 1.19 (0.83-1.09); PROTHROMBIN TIME (PATIENT) 14.1 SEC (9.7-13.0)
[2018-10-19] MEDS ORDERED: LIDOCAINE HCL 1%, 10 MG/ML (20ML VIAL) ONE (08:27)
[2018-10-19] MEDS ORDERED: HEPARIN NA (PORCINE) 5,000 UNITS/ML 1ML VIAL ONE ×2 (08:27→11:07)
--- NOTE | 2018-10-19 09:13 | PN ---
Physical Exam: SUBJECTIVE: Patient seen and examined this AM. he states he is doing well with minimal pain today. Discussed surgical possibilities with patient who understands the current plan, though confused and forgetful. Vascular plan noted OBJECTIVE: Vital Signs Period Temp Pulse Resp BP Sys/Quinteros Pulse Ox Last 24 Hr 98.7 F-100.0 F 79-94 - 111-162/57-89 95 GEN: alert, oriented to self only, no acute distress HEENT: PERRL, dry mucus membranes HEART: RRR, no murmurs noted LUNGS: CTA b/l, no wheezes noted ABDOMEN: Soft, nontender EXTREMITIES: LLE: cool from mid-distal leg down to foot, nonpitting edema, no palpable pulses, bandage clean and dry, RLE: good pulses, warm NEURO: CNII-XII grossly in tact, no gross deficits Laboratory Results - last 24 hr 10/19/18 10/19/18 10/19/18 05:30 05:30 05:30 WBC 8.4 RBC 3.72 L Hgb 10.4 L Hct 31.3 L MCV 84.3 MCH 28.1 MCHC 33.3 RDW 14.4 Plt Count 363 MPV 7.6 PT with INR INR PTT (Actin FS) 59.9 H Sodium 139 Potassium 4.5 Chloride 105 Carbon Dioxide 27 Anion Gap 6 L BUN 19 H Creatinine 1.0 Est GFR (CKD-EPI)AfAm 78.64 Est GFR (CKD-EPI)NonAf 67.85 Random Glucose 119 H Calcium 8.0 L Phosphorus 3.0 Magnesium 2.2 Total Bilirubin 0.3 AST 18 ALT 19 Alkaline Phosphatase 74 Total Protein 6.3 L Albumin 2.2 L 10/19/18 05:30 WBC RBC Hgb Hct MCV MCH MCHC RDW Plt Count MPV PT with INR 14.10 H INR 1.19 H PTT (Actin FS) Sodium Potassium Chloride Carbon Dioxide Anion Gap BUN Creatinine Est GFR (CKD-EPI)AfAm Est GFR (CKD-EPI)NonAf Random Glucose Calcium Phosphorus Magnesium Total Bilirubin AST ALT Alkaline Phosphatase Total Protein Albumin Active Medications Generic Name Dose Route Start Last Admin Trade Name Freq PRN Reason Stop Dose Admin Heparin Sodium (Porcine) 1,000 unit 10/16/18 18:09 10/17/18 17:23 Heparin - IVPUSH 1,000 unit PRN PRN Administration Heparin Heparin Sodium (Porcine) 5,000 unit 10/16/18 18:09 Heparin - IVPUSH PRN PRN Heparin HEPARIN SOD,PORK IN 0.45% NACL 25,000 units in 500 mls @ 20 mls/hr 10/16/18 18 :15 10/19/18 08:39 Heparin-1/2ns 25,000 Units/500 IVPB 1,100 units/hr TITR AVINASH 22 mls/hr Titration Protocol 1,000 UNITS/HR Ketorolac Tromethamine 15 mg 10/16/18 20:12 Toradol Injection - IVPUSH 10/19/18 20:39 Q6H PRN PAIN LEVEL 1 - 3 Morphine Sulfate 1 mg 10/17/18 22:30 10/19/18 08:42 Morphine Sulfate IVPUSH 1 mg Q4H PRN Administration PAIN LEVEL 4 - 6 Ondansetron HCl 4 mg 10/16/18 20:12 Zofran Injection IVPUSH Q6H PRN NAUSEA AND/OR VOMITING Promethazine HCl 12.5 mg 10/16/18 20:12 Phenergan Injection - IVPUSH Q6H PRN NAUSEA-FOR RESCUE AFTER 15 MIN ASSESSMENT/PLAN: 88 year old male with a hx of dementia presented to ED for 1 week of cold left foot and swelling of the L foot. Left Ischemic Leg -No pulse in left foot, left leg perfusion improved following thrombectomy however distal foot still cool -Vascular surgery consult appreciated -Hold heparin while thrombolytic running -Angiogram/plasty friday converted to open thrombectomy with significant clot removel -For OR today for thrombolytic infusion Dimentia -frequent reorienting FEN -hold fluid -monitor and replete -regular diet can be resumed post-op DVT Prophylaxis -on heparin drip Disposition ICU, For OR again today Visit type - Emergency Visit Emergency Visit: Yes ED Registration Date: 10/14/18 Care time: The patient presented to the Emergency Department on the above date and was hospitalized for further evaluation of their emergent condition. - New Patient This patient is new to me today: No - Critical Care Critical Care patient: Yes Total Critical Care Time (in minutes): 35 Critical Care Statement: The care of this patient involved high complexity decision making to prevent further life threatening deterioration of the patient 's condition and/or to evaluate & treat vital organ system(s) failure or risk of failure.
[2018-10-19] MEDS ORDERED: ALTEPLASE 2 MG VIAL IVPB ONE (09:30)
[2018-10-19] MEDS ORDERED: MIDAZOLAM HCL 2 MG/2 ML SINGLE DOSE VIAL ONE (10:25)
[2018-10-19] MEDS ORDERED: ceFAZolin SODIUM 1 GM VIAL IVPB ONE (10:35)
[2018-10-19] MEDS ORDERED: LIDOCAINE HCL 1%, 10 MG/ML (20ML VIAL) PNB ONE (10:48)
[2018-10-19] MEDS ORDERED: HEPARIN INFUSION - 25,000 UNITS/500 ML INFUS.BAG IVPB ONE (11:15)
--- NOTE | 2018-10-19 11:41 | OP ---
Operative Note - Note: Operative Date: 10/19/18 Pre-Operative Diagnosis: LLE ischemia Operation: Aortogram, LLE angiogram, thrombolysis Findings: Distal SFA thrombosed. No runoff Post-Operative Diagnosis: Same as Pre-op Surgeon: Ton Mosquera Anesthesia: Fractional Estimated Blood Loss (mls): 10 Operative Report Dictated: Yes
[2018-10-19] MEDS: HEPARIN SOD,PORK IN 0.45% NACL 25,000 UNITS/500 ML INFUS.BAG IVPB SCH ×2 (11:55→19:30)
[2018-10-19] MEDS: SODIUM CHLORIDE 1,000 ML IV SCH (11:55)
--- NOTE | 2018-10-19 12:03 | PN ---
Teaching Attending Note Name of Resident: Shannon Gonzalez ATTENDING PHYSICIAN STATEMENT I saw and evaluated the patient. I reviewed the resident's note and discussed the case with the resident. I agree with the resident's findings and plan as documented. SUBJECTIVE: Pt seen and examined in the ICU. s/p LLE angiogram showing occluded distal SFA now with thrombolysis catheter. OBJECTIVE: Vital Signs Period Temp Pulse Resp BP Sys/Quinteros Pulse Ox Last 24 Hr 98 F-100.0 F 79-94 11-22 111-162/55-89 95-96 Intake & Output 10/16/18 10/17/18 10/18/18 10/19/18 23:59 23:59 23:59 23:59 Intake Total 736 1092.1 1170 263 Output Total 2 Balance 736 1092.1 1170 261 Weight 66.678 kg 64 kg 64.5 kg Gen: NAD at rest Heart: RRR Lung: decreased breath sounds at the bases Abd: soft, nontender Ext: LLE cool CBC, BMP 10/19/18 05:30 10/19/18 05:30 Active Medications Heparin Sodium (Porcine) (Heparin -) 1,000 unit IVPUSH PRN PRN PRN Reason: Heparin Last Admin: 10/17/18 17:23 Dose: 1,000 unit Heparin Sodium (Porcine) (Heparin -) 5,000 unit IVPUSH PRN PRN PRN Reason: Heparin HEPARIN SOD,PORK IN 0.45% NACL (Heparin-1/2ns 25,000 Units/500) 25,000 units in 500 mls @ 20 mls/hr IVPB TITR AVINASH; Protocol Last Titration: 10/19/18 08:39 Dose: 1,100 units/hr, 22 mls/hr Sodium Chloride (Normal Saline -) 1,000 mls @ 42 mls/hr IV ASDIR AVINASH Ketorolac Tromethamine (Toradol Injection -) 15 mg IVPUSH Q6H PRN PRN Reason: PAIN LEVEL 1 - 3 Stop: 10/19/18 20:39 Morphine Sulfate (Morphine Sulfate) 1 mg IVPUSH Q4H PRN PRN Reason: PAIN LEVEL 4 - 6 Last Admin: 10/19/18 08:42 Dose: 1 mg Ondansetron HCl (Zofran Injection) 4 mg IVPUSH Q6H PRN PRN Reason: NAUSEA AND/OR VOMITING Promethazine HCl (Phenergan Injection -) 12.5 mg IVPUSH Q6H PRN PRN Reason: NAUSEA-FOR RESCUE AFTER 15 MIN ASSESSMENT AND PLAN: LLE ischemia/Femoral/Popliteal/Tibial Emboli s/p LLE anigogram/open thrombectomy s/p LLE angiogram/thrombolysis Dementia - pulse checks - continue anticoagulation to therapeutic range - monitor CBC, coags, fibrinogen level - pain control - continue ICU monitoring
--- NOTE | 2018-10-19 14:28 | PN ---
Physical Exam: SUBJECTIVE: Patient seen and examined at bedside this morning. No acute events overnight. Patient denies any fever, chills, headache, dizziness, chest pain, SOB, abdominal pain, diarrhea. OBJECTIVE: Vital Signs Temperature 97.9 F 10/19/18 12:30 Pulse Rate 73 10/19/18 12:30 Respiratory Rate 15 10/19/18 12:30 Blood Pressure 148/71 10/19/18 12:30 O2 Sat by Pulse Oximetry (%) 100 10/19/18 12:20 GENERAL: The patient is awake, alert, oriented to self, in no acute distress HEAD: Normal with no signs of trauma. EYES: PERRLA, EOMI, sclera anicteric, conjunctiva clear. ENT: oropharynx clear without exudates, moist mucous membranes. NECK: Trachea midline, full range of motion, supple. LUNGS: Breath sounds equal, clear to auscultation bilaterally. HEART: Regular rate and rhythm, S1, S2 without murmur, rub or gallop. ABDOMEN: Soft, nontender, nondistended, normoactive bowel sounds. EXTREMITIES: LLE: cold feet, gangrenous 4th toe, DP and TP not palpable. RLE: + 2 pulses, warm, well-perfused. No peripheral edema. NEUROLOGICAL: Cranial nerves II through XII grossly intact. Normal speech, gait not observed. SKIN: Warm, dry, normal turgor, no rashes or lesions noted Laboratory Results - last 24 hr 10/19/18 10/19/18 10/19/18 05:30 05:30 05:30 WBC 8.4 RBC 3.72 L Hgb 10.4 L Hct 31.3 L MCV 84.3 MCH 28.1 MCHC 33.3 RDW 14.4 Plt Count 363 MPV 7.6 PT with INR INR PTT (Actin FS) 59.9 H Sodium 139 Potassium 4.5 Chloride 105 Carbon Dioxide 27 Anion Gap 6 L BUN 19 H Creatinine 1.0 Est GFR (CKD-EPI)AfAm 78.64 Est GFR (CKD-EPI)NonAf 67.85 Random Glucose 119 H Calcium 8.0 L Phosphorus 3.0 Magnesium 2.2 Total Bilirubin 0.3 AST 18 ALT 19 Alkaline Phosphatase 74 Total Protein 6.3 L Albumin 2.2 L 10/19/18 05:30 WBC RBC Hgb Hct MCV MCH MCHC RDW Plt Count MPV PT with INR 14.10 H INR 1.19 H PTT (Actin FS) Sodium Potassium Chloride Carbon Dioxide Anion Gap BUN Creatinine Est GFR (CKD-EPI)AfAm Est GFR (CKD-EPI)NonAf Random Glucose Calcium Phosphorus Magnesium Total Bilirubin AST ALT Alkaline Phosphatase Total Protein Albumin Active Medications Generic Name Dose Route Start Last Admin Trade Name Freq PRN Reason Stop Dose Admin Heparin Sodium (Porcine) 1,000 unit 10/16/18 18:09 10/17/18 17:23 Heparin - IVPUSH 1,000 unit PRN PRN Administration Heparin Heparin Sodium (Porcine) 5,000 unit 10/16/18 18:09 Heparin - IVPUSH PRN PRN Heparin HEPARIN SOD,PORK IN 0.45% NACL 25,000 units in 500 mls @ 20 mls/hr 10/16/18 18 :15 10/19/18 08:39 Heparin-1/2ns 25,000 Units/500 IVPB 1,100 units/hr TITR AVINASH 22 mls/hr Titration Protocol 1,000 UNITS/HR Sodium Chloride 1,000 mls @ 42 mls/hr 10/19/18 12:15 Normal Saline - IV ASDIR AVINASH Ketorolac Tromethamine 15 mg 10/16/18 20:12 Toradol Injection - IVPUSH 10/19/18 20:39 Q6H PRN PAIN LEVEL 1 - 3 Morphine Sulfate 1 mg 10/17/18 22:30 10/19/18 08:42 Morphine Sulfate IVPUSH 1 mg Q4H PRN Administration PAIN LEVEL 4 - 6 Ondansetron HCl 4 mg 10/16/18 20:12 Zofran Injection IVPUSH Q6H PRN NAUSEA AND/OR VOMITING Promethazine HCl 12.5 mg 10/16/18 20:12 Phenergan Injection - IVPUSH Q6H PRN NAUSEA-FOR RESCUE AFTER 15 MIN ASSESSMENT/PLAN: Patient is an 88 year old male with past medical history of dementia, presented from [facility], due to cold left foot accompanied with pain. Patient was brought in to OR today and underwent LLE angiogram, open thrombectomy of femoral artery, popliteal artery and tibial artery. #Neuro -hx of dementia -will continue to monitor #Cardiovascular -left leg ischemia 2/2 LLE embolus -Vascular surgery (Dr. Mosquera) consulted. Recommendations appreciated. -POD 3: Open thrombectomy of femoral artery, popliteal artery, tibial artery -POD 0: Aortogram, LLE angiogram, thrombolysis -Distal SFA thrombosed. No runoff. -continue heparin drip -Keep NPO -Nazario catheter -Continue heparin drip at 10cc/hr -TPA at 10cc/hr -IV NS at 42cc/hr -CBC, PT/PTT, Fibrinogen q6h -Iv Toradol and Morphine PRN for pain #Pulmo -on nasal cannula, keep SpO2>90% -incentive spirometry #GI -NPO for now #Renal -renal function stable -will continue to monitor #FEN -Not on any standing fluids -Electrolytes wnl, routine bmp monitoring -NPO as per vascular surgery #Prophylaxis -on heparin drip #Disposition -full code -ICU monitoring Visit type - Emergency Visit Emergency Visit: Yes ED Registration Date: 10/14/18 Care time: The patient presented to the Emergency Department on the above date and was hospitalized for further evaluation of their emergent condition. - New Patient This patient is new to me today: No - Critical Care Critical Care patient: Yes Total Critical Care Time (in minutes): 36 Critical Care Statement: The care of this patient involved high complexity decision making to prevent further life threatening deterioration of the patient 's condition and/or to evaluate & treat vital organ system(s) failure or risk of failure.
--- NOTE | 2018-10-19 15:03 | PN ---
Teaching Attending Note Name of Resident: Will Arriaza ATTENDING PHYSICIAN STATEMENT I saw and evaluated the patient. I reviewed the resident's note and discussed the case with the resident. I agree with the resident's findings and plan as documented. SUBJECTIVE: Patient is in ICU s/p thrombolysis OBJECTIVE: Vital Signs Temperature 97.9 F 10/19/18 12:30 Pulse Rate 73 10/19/18 12:30 Respiratory Rate 15 10/19/18 12:30 Blood Pressure 148/71 10/19/18 12:30 O2 Sat by Pulse Oximetry (%) 100 10/19/18 12:20 GEN: alert, oriented to self only, no acute distress HEENT: PERRL, dry mucus membranes HEART: RRR, no murmurs noted LUNGS: CTA b/l, no wheezes noted ABDOMEN: Soft, nontender EXTREMITIES: LLE: cool to touch the foot , non-pitting edema. left dorsum of the foot skin tear, not infected. RLE: good pulses, warm NEURO: CNII-XII grossly in tact, no gross deficits CBCD WBC 8.4 K/mm3 (4.0-10.0) 10/19/18 05:30 RBC 3.72 M/mm3 (4.00-5.60) L 10/19/18 05:30 Hgb 10.4 GM/dL (11.7-16.9) L 10/19/18 05:30 Hct 31.3 % (35.4-49) L 10/19/18 05:30 MCV 84.3 fl (80-96) 10/19/18 05:30 MCHC 33.3 g/dl (32.0-35.9) 10/19/18 05:30 RDW 14.4 % (11.9-15.9) 10/19/18 05:30 Plt Count 363 K/MM3 (134-434) 10/19/18 05:30 MPV 7.6 fl (7.5-11.1) 10/19/18 05:30 CMP Sodium 139 mmol/L (136-145) 10/19/18 05:30 Potassium 4.5 mmol/L (3.5-5.1) 10/19/18 05:30 Chloride 105 mmol/L (98-107) 10/19/18 05:30 Carbon Dioxide 27 mmol/L (21-32) 10/19/18 05:30 Anion Gap 6 MMOL/L (8-16) L 10/19/18 05:30 BUN 19 mg/dL (7-18) H 10/19/18 05:30 Creatinine 1.0 mg/dL (0.55-1.3) 10/19/18 05:30 Random Glucose 119 mg/dL (74-106) H 10/19/18 05:30 Calcium 8.0 mg/dL (8.5-10.1) L 10/19/18 05:30 Total Bilirubin 0.3 mg/dL (0.2-1) 10/19/18 05:30 AST 18 U/L (15-37) 10/19/18 05:30 ALT 19 U/L (13-61) 10/19/18 05:30 Alkaline Phosphatase 74 U/L (45-117) 10/19/18 05:30 Total Protein 6.3 g/dl (6.4-8.2) L 10/19/18 05:30 Albumin 2.2 g/dl (3.4-5.0) L 10/19/18 05:30 Current Medications Generic Name Dose Route Start Last Admin Trade Name Freq PRN Reason Stop Dose Admin Heparin Sodium (Porcine) 1,000 unit 10/16/18 18:09 10/17/18 17:23 Heparin - IVPUSH 1,000 unit PRN PRN Administration Heparin Heparin Sodium (Porcine) 5,000 unit 10/16/18 18:09 Heparin - IVPUSH PRN PRN Heparin HEPARIN SOD,PORK IN 0.45% NACL 25,000 units in 500 mls @ 20 mls/hr 10/16/18 18 :15 10/19/18 11:55 Heparin-1/2ns 25,000 Units/500 IVPB 500 units/hr TITR AVINASH 10 mls/hr Administration Protocol 1,000 UNITS/HR Sodium Chloride 1,000 mls @ 42 mls/hr 10/19/18 12:15 10/19/18 11:55 Normal Saline - IV 42 mls/hr ASDIR AVINASH Administration Ketorolac Tromethamine 15 mg 10/16/18 20:12 Toradol Injection - IVPUSH 10/19/18 20:39 Q6H PRN PAIN LEVEL 1 - 3 Morphine Sulfate 1 mg 10/17/18 22:30 10/19/18 08:42 Morphine Sulfate IVPUSH 1 mg Q4H PRN Administration PAIN LEVEL 4 - 6 Ondansetron HCl 4 mg 10/16/18 20:12 Zofran Injection IVPUSH Q6H PRN NAUSEA AND/OR VOMITING Promethazine HCl 12.5 mg 10/16/18 20:12 Phenergan Injection - IVPUSH Q6H PRN NAUSEA-FOR RESCUE AFTER 15 MIN Home Medications Medication Instructions Recorded Lanolin Alcohol/Mo/W.pet/[place] 113 gm TP BID 10/14/18 [Eucerin Creme] Silver Sulfadiazine 1% Top Cr 1 applic TP ONCE 10/14/18 [Silvadene] EKG noted (sinus rhythm with PACs, rate 87, Qtc 454) ASSESSMENT AND PLAN: Patient is a 88 year old male with PMhx of dementia presented to ED for having one week of left cold foot and swelling of the L foot. #POD #3 s/p LLE anigogram/open thrombectomy for Ischemic Left Foot by Dr. Mosquera.. Embolus was found in entire left leg. # POD #0 s/p LLE angiogram/thrombolysis now with thrombolysis catheter. continue pulse check. Continue heparin ggt, pain control. doppler pulse checks, pain control. # Dementia hx DVT Px: heparin ggt
[2018-10-19] MEDS ORDERED: LABETALOL HCL 5 MG/1 ML (100MG/20 ML VIAL) IVPUSH ONE (16:22)
[2018-10-19] MEDS ORDERED: morphine CARPU-JECT 2 MG/1 ML DISP.SYRIN IVPUSH PRN (17:02)
[2018-10-19 19:03] LABS: BASO % 0.3 % (0-2.0); EOS % 1.3 % (0-4.5); HEMATOCRIT 29.8 % (35.4-49); HEMOGLOBIN 9.7 GM/dL (11.7-16.9); LYMPH % 6.8 % (8-40); MCH 27.8 pg (25.7-33.7); MCHC 32.4 g/dl (32.0-35.9); MEAN CELL VOLUME 85.7 fl (80-96); MEAN PLT VOLUME 7.8 fl (7.5-11.1); MONO % 9.2 % (3.8-10.2); NEUT % 82.4 % (42.8-82.8); PLATELET COUNT 246 K/MM3 (134-434); RBC 3.48 M/mm3 (4.00-5.60); RDW 14.5 % (11.9-15.9); WHITE BLOOD COUNT 11.8 K/mm3 (4.0-10.0)
[2018-10-19 20:03] LABS: INR 1.69 (0.83-1.09)
[2018-10-19 21:40] LABS: PROTHROMBIN TIME (PATIENT) 20.1 SEC (9.7-13.0)
[2018-10-19 21:47] LABS: ACTIVATED PTT 87.9 SECONDS (25.2-36.5)
[2018-10-19] MEDS: KETOROLAC TROMETHAMINE 15 MG/ML VIAL IVPUSH PRN (23:00)
[2018-10-20 00:29] LABS: BASO % 0.5 % (0-2.0); EOS % 1.9 % (0-4.5); HEMATOCRIT 29.5 % (35.4-49); HEMOGLOBIN 9.6 GM/dL (11.7-16.9); LYMPH % 8.5 % (8-40); MCHC 32.5 g/dl (32.0-35.9); MEAN CELL VOLUME 86.1 fl (80-96); MEAN PLT VOLUME 7.6 fl (7.5-11.1); MONO % 8.4 % (3.8-10.2); NEUT % 80.7 % (42.8-82.8); PLATELET COUNT 262 K/MM3 (134-434); RBC 3.43 M/mm3 (4.00-5.60); RDW 14.8 % (11.9-15.9); WHITE BLOOD COUNT 9.7 K/mm3 (4.0-10.0)
[2018-10-20 00:43] LABS: INR 1.24 (0.83-1.09); PROTHROMBIN TIME (PATIENT) 14.7 SEC (9.7-13.0)
[2018-10-20 00:45] LABS: ACTIVATED PTT 34.4 SECONDS (25.2-36.5)
[2018-10-20] MEDS: KETOROLAC TROMETHAMINE 15 MG/ML VIAL IVPUSH PRN (05:07)
[2018-10-20] MEDS ORDERED: PT OWN MED DRAWER 7, Y5N ONE (05:11)
[2018-10-20 06:45] LABS: BASO % 0.9 % (0-2.0); EOS % 2.8 % (0-4.5); HEMATOCRIT 27.7 % (35.4-49); HEMOGLOBIN 9.2 GM/dL (11.7-16.9); LYMPH % 12.3 % (8-40); MCH 28.1 pg (25.7-33.7); MCHC 33.2 g/dl (32.0-35.9); MEAN CELL VOLUME 84.5 fl (80-96); MEAN PLT VOLUME 7.6 fl (7.5-11.1); MONO % 11.7 % (3.8-10.2); NEUT % 72.3 % (42.8-82.8); PLATELET COUNT 256 K/MM3 (134-434); RBC 3.27 M/mm3 (4.00-5.60); RDW 14.3 % (11.9-15.9); WHITE BLOOD COUNT 7.3 K/mm3 (4.0-10.0)
[2018-10-20 07:14] LABS: CALCIUM 7.9 mg/dL (8.5-10.1); CREATININE 0.9 mg/dL (0.55-1.3); MAGNESIUM 2.1 mg/dL (1.8-2.4); PHOSPHOROUS 3.7 mg/dL (2.5-4.9)
--- NOTE | 2018-10-20 08:28 | OP ---
DATE OF OPERATION: 10/19/2018 PREOPERATIVE DIAGNOSIS: Left lower extremity ischemia. POSTOPERATIVE DIAGNOSIS: Left lower extremity ischemia. PROCEDURE PERFORMED: Aortogram, left lower extremity angiogram, thrombolysis. SURGEON: Ton De Luna DO ANESTHESIA: Fractional. BLOOD LOSS: 10 mL. INDICATIONS: The patient is a 88-year-old male who had open thrombectomy performed on Friday evening due to the fact that he had left lower extremity ischemia found at a [facility], for over a week. Upon doing his angiogram on Friday, it was found that the entire SFA from its origin was occluded, and he had an open thrombectomy performed, where we were able to get clot out of his iliac, his SFA and his popliteal artery. Then he was anticoagulated over the weekend. The patient was seen on Friday and found the foot was still cool to touch and at the distal ankle, and it seemed like the popliteal pulse that he had was no longer. At this point he had already had open thrombectomy and his distal runoff is completely. He would need thrombolysis. DESCRIPTION OF PROCEDURE: The patient's family was consented for the procedure, understanding all risks, benefits and alternatives. He was then brought to the operating room. Once in the operating room, the patient was laid on the operating table in the supine manner. The areas of the left and right groin were prepped and draped in a sterile surgical manner. Under ultrasound guidance, we were able to visualize the right common femoral artery, and 10 mL of lidocaine 1% was injected there. Under ultrasound guidance, we were able to take our Micropuncture needle and puncture the right common femoral artery. Micropuncture wire was inserted. Micropuncture was inserted, and an additional 5-Kiswahili sheath was inserted. A 0.035 floppy guidewire was inserted into the aorta, followed by an Omni Flush catheter. We then shot an aortogram by hand injection, showing that aorta and iliac arteries were tortuous but patent. We then placed a 0.035 stiff guidewire up and over to the left common femoral artery and into the SFA. We then went ahead and brought our Omni Flush catheter down. We shot an angiogram of the left lower extremity, showing that the common femoral artery and the profunda are patent, as the proximal SFA is patent and the mid to distal SFA is occluded and there is no runoff into the foot. At this point we placed a 0.035 stiff guidewire further down into the SFA. We removed our Omni Flush catheter. We placed a 6 x 45 crossover sheath, and 5000 units of IV heparin was administered to the patient. We then went ahead and placed our EKOS catheter in, and placed it in the distal SFA. Once the EKOS catheter was in place, we then connected at 10 mL an hour, which was 1 mg an hour. At this point, the patient will now go back to the ICU and will get thrombolysis. We went ahead and secured our catheter by placing 4 x 4's and Tegaderm, and the patient was transferred to the ICU in stable condition. TON DE LUNA DO [id number]
--- NOTE | 2018-10-20 08:30 | PN ---
Progress Note (short form) - Note Progress Note: Anesthesia/pain Pt seen and examined S:Alert and awake Comfortable O: Vital Signs Temperature 100.7 F H 10/20/18 02:00 Pulse Rate 92 H 10/20/18 08:00 Respiratory Rate 21 H 10/20/18 04:00 Blood Pressure 120/64 10/20/18 08:00 O2 Sat by Pulse Oximetry (%) 97 10/19/18 20:41 CBC, BMP 10/20/18 05:30 10/20/18 05:30 A/P: Current Active Problems Arterial occlusion (Acute) S/P: angiogram TPA infusion Doing well post op Continue current care Arnol Donato MD
--- NOTE | 2018-10-20 08:39 | PN ---
Physical Exam: SUBJECTIVE: Patient seen and examined this AM. states he is trying not to cry because he is so thankful that he may get to keep his foot and is thankful for the team taking care of him. discussed with patient that we will follow for the next few days and to make sure there is good flow to leg or he could still need further procedures (including possibility of BKA vs AKA as previously discussed) . OBJECTIVE: Vital Signs Period Temp Pulse Resp BP Sys/Quinteros Pulse Ox Last 24 Hr 97.9 F-100.7 F 65-120 10- 120-180/47-114 96-100 GEN: alert, oriented to self only, no acute distress HEENT: PERRL, dry mucus membranes HEART: RRR, no murmurs noted LUNGS: CTA b/l, no wheezes noted ABDOMEN: Soft, nontender EXTREMITIES: LLE: cool from mid-distal leg down to foot, nonpitting edema, palpable popliteal pulse, dopplarable PT pulse, bandage noted with some blood, RLE: good pulses, warm, tPA infusion catheter on the right without any sign of bleeding NEURO: CNII-XII grossly in tact, no gross deficits Laboratory Results - last 24 hr 10/19/18 10/19/18 10/19/18 18:00 18:00 18:00 WBC 11.8 H RBC 3.48 L Hgb 9.7 L Hct 29.8 L MCV 85.7 MCH 27.8 MCHC 32.4 RDW 14.5 Plt Count 246 D MPV 7.8 Absolute Neuts (auto) 9.7 H Neutrophils % 82.4 Lymphocytes % 6.8 L Monocytes % 9.2 Eosinophils % 1.3 D Basophils % 0.3 Nucleated RBC % 0 PT with INR 20.10 H INR 1.69 H PTT (Actin FS) 87.9 H Fibrinogen Cancelled Sodium Potassium Chloride Carbon Dioxide Anion Gap BUN Creatinine Est GFR (CKD-EPI)AfAm Est GFR (CKD-EPI)NonAf Random Glucose Calcium Phosphorus Magnesium 10/20/18 10/20/18 10/20/18 00:00 00:00 00:00 WBC 9.7 RBC 3.43 L Hgb 9.6 L Hct 29.5 L MCV 86.1 MCH 28.0 MCHC 32.5 RDW 14.8 Plt Count 262 MPV 7.6 Absolute Neuts (auto) 7.8 Neutrophils % 80.7 Lymphocytes % 8.5 D Monocytes % 8.4 Eosinophils % 1.9 Basophils % 0.5 Nucleated RBC % 0 PT with INR 14.70 H INR 1.24 H PTT (Actin FS) 34.4 Fibrinogen 106.0 L Sodium Potassium Chloride Carbon Dioxide Anion Gap BUN Creatinine Est GFR (CKD-EPI)AfAm Est GFR (CKD-EPI)NonAf Random Glucose Calcium Phosphorus Magnesium 10/20/18 10/20/18 10/20/18 05:30 05:30 05:30 WBC 7.3 RBC 3.27 L Hgb 9.2 L Hct 27.7 L MCV 84.5 MCH 28.1 MCHC 33.2 RDW 14.3 Plt Count 256 MPV 7.6 Absolute Neuts (auto) 5.3 Neutrophils % 72.3 Lymphocytes % 12.3 D Monocytes % 11.7 H Eosinophils % 2.8 Basophils % 0.9 Nucleated RBC % 0 PT with INR INR PTT (Actin FS) 37.8 H Fibrinogen Sodium 139 Potassium 4.0 Chloride 107 Carbon Dioxide 24 Anion Gap 9 BUN 19 H Creatinine 0.9 Est GFR (CKD-EPI)AfAm 89.32 Est GFR (CKD-EPI)NonAf 77.06 Random Glucose 124 H Calcium 7.9 L Phosphorus 3.7 Magnesium 2.1 Active Medications Generic Name Dose Route Start Last Admin Trade Name Freq PRN Reason Stop Dose Admin Heparin Sodium (Porcine) 1,000 unit 10/16/18 18:09 10/17/18 17:23 Heparin - IVPUSH 1,000 unit PRN PRN Administration Heparin Heparin Sodium (Porcine) 5,000 unit 10/16/18 18:09 Heparin - IVPUSH PRN PRN Heparin HEPARIN SOD,PORK IN 0.45% NACL 25,000 units in 500 mls @ 20 mls/hr 10/16/18 18 :15 10/19/18 19:30 Heparin-1/2ns 25,000 Units/500 IVPB 500 units/hr TITR AVINASH 10 mls/hr Administration Protocol 1,000 UNITS/HR Sodium Chloride 1,000 mls @ 42 mls/hr 10/19/18 12:15 10/19/18 11:55 Normal Saline - IV 42 mls/hr ASDIR AVINASH Administration Ketorolac Tromethamine 15 mg 10/19/18 20:50 10/20/18 05:07 Toradol Injection - IVPUSH 10/24/18 20:49 15 mg Q6H PRN Administration PAIN LEVEL 1 - 3 Morphine Sulfate 2 mg 10/19/18 17:28 10/19/18 15:00 Morphine Sulfate IVPUSH 2 mg Q4H PRN Administration PAIN LEVEL 4 - 6 Ondansetron HCl 4 mg 10/16/18 20:12 Zofran Injection IVPUSH Q6H PRN NAUSEA AND/OR VOMITING Promethazine HCl 12.5 mg 10/16/18 20:12 Phenergan Injection - IVPUSH Q6H PRN NAUSEA-FOR RESCUE AFTER 15 MIN ASSESSMENT/PLAN: 88 year old male with a hx of dementia presented to ED for 1 week of cold left foot and swelling of the L foot. Left Ischemic Leg - left leg perfusion improved following thrombectomy and now tPA infusion, however distal foot still cool -Vascular surgery consult appreciated -Heparin Drip -Angiogram/plasty friday converted to open thrombectomy with significant clot removel -s/p tpa catheter insertion and infusion overnight with significant improvement of flow to the leg. -Pt could require BKA pending next few days -tPA infusion as per vascular surgery Dimentia -frequent reorienting FEN -hold fluid -monitor and replete -regular diet can be resumed DVT Prophylaxis -on heparin drip Disposition ICU, likely stable for transfer to floor once off tpa for one more day Visit type - Emergency Visit Emergency Visit: Yes ED Registration Date: 10/14/18 Care time: The patient presented to the Emergency Department on the above date and was hospitalized for further evaluation of their emergent condition. - New Patient This patient is new to me today: No - Critical Care Critical Care patient: Yes Total Critical Care Time (in minutes): 35 Critical Care Statement: The care of this patient involved high complexity decision making to prevent further life threatening deterioration of the patient 's condition and/or to evaluate & treat vital organ system(s) failure or risk of failure.
--- NOTE | 2018-10-20 08:54 | PN ---
Progress Note (short form) - Note Progress Note: Vascular surgery Pt seen and examined. TPA off for over a hour due to fibriogen being 106. Pt with palpable popliteal pulse. Will restart tpa. Ankle and foot are still cool to touch. Ton Mosquera DO
[2018-10-20 08:59] LABS: INR 1.46 (0.83-1.09); PROTHROMBIN TIME (PATIENT) 17.3 SEC (9.7-13.0)
[2018-10-20] MEDS ORDERED: ALTEPLASE 50 MG VIAL IVPB ONE ×2 (09:00)
[2018-10-20] MEDS ORDERED: ACETAMINOPHEN 325 MG TABLET (FP) PO ONE (12:28)
--- NOTE | 2018-10-20 12:31 | PN ---
Teaching Attending Note Name of Resident: Shannon Gonzalez ATTENDING PHYSICIAN STATEMENT I saw and evaluated the patient. I reviewed the resident's note and discussed the case with the resident. I agree with the resident's findings and plan as documented. SUBJECTIVE: Pt seen and examined in the ICU. tPA infusing with some bleeding at left femoral site and from gums. OBJECTIVE: Vital Signs Period Temp Pulse Resp BP Sys/Quinteros Pulse Ox Last 24 Hr 97.9 F-100.7 F 65-96 11-24 120-180/47-89 97-100 Intake & Output 10/17/18 10/18/18 10/19/18 10/20/18 23:59 23:59 23:59 23:59 Intake Total 1092.1 1170 847 660 Output Total 1052 200 Balance 1092.1 1170 -205 460 Weight 64 kg 64.5 kg Gen: confused Heart: RRR Lung: decreased breath sounds at the bases Abd: soft, nontender Ext: left foot cool to touch, +popliteal pulse CBC, BMP 10/20/18 05:30 10/20/18 05:30 Active Medications Acetaminophen (Tylenol -) 650 mg PO ONCE ONE Stop: 10/20/18 12:29 Heparin Sodium (Porcine) (Heparin -) 1,000 unit IVPUSH PRN PRN PRN Reason: Heparin Last Admin: 10/17/18 17:23 Dose: 1,000 unit Heparin Sodium (Porcine) (Heparin -) 5,000 unit IVPUSH PRN PRN PRN Reason: Heparin HEPARIN SOD,PORK IN 0.45% NACL (Heparin-1/2ns 25,000 Units/500) 25,000 units in 500 mls @ 20 mls/hr IVPB TITR AVINASH; Protocol Last Admin: 10/19/18 19:30 Dose: 500 units/hr, 10 mls/hr Sodium Chloride (Normal Saline -) 1,000 mls @ 42 mls/hr IV ASDIR AVINASH Last Admin: 10/19/18 11:55 Dose: 42 mls/hr Ketorolac Tromethamine (Toradol Injection -) 15 mg IVPUSH Q6H PRN PRN Reason: PAIN LEVEL 1 - 3 Stop: 10/24/18 20:49 Last Admin: 10/20/18 05:07 Dose: 15 mg Morphine Sulfate (Morphine Sulfate) 2 mg IVPUSH Q4H PRN PRN Reason: PAIN LEVEL 4 - 6 Last Admin: 10/19/18 15:00 Dose: 2 mg Ondansetron HCl (Zofran Injection) 4 mg IVPUSH Q6H PRN PRN Reason: NAUSEA AND/OR VOMITING Promethazine HCl (Phenergan Injection -) 12.5 mg IVPUSH Q6H PRN PRN Reason: NAUSEA-FOR RESCUE AFTER 15 MIN ASSESSMENT AND PLAN: LLE ischemia/Femoral/Popliteal/Tibial Emboli s/p LLE anigogram/open thrombectomy s/p LLE angiogram/thrombolysis Dementia - pulse checks - continue tPA per vascular surgery - continue anticoagulation to therapeutic range - monitor CBC, coags, fibrinogen level - pain control - aspiration precautions - continue ICU monitoring
[2018-10-20] MEDS ORDERED: ACETAMINOPHEN 1000 MG/100 ML VIAL (NON FORMULARY) IVPB ONE ×2 (12:33→23:47)
[2018-10-20] MEDS: SODIUM CHLORIDE 1,000 ML IV SCH (12:50)
--- NOTE | 2018-10-20 13:14 | OP ---
DATE OF OPERATION: 10/16/2018 PREOPERATIVE DIAGNOSIS: Left lower extremity ischemia. POSTOPERATIVE DIAGNOSIS: Left lower extremity ischemia. PROCEDURES: Aortogram. Left lower extremity angiogram. Open thrombectomy, femoral artery, popliteal artery, and tibial artery. SURGEON: Tno De Luna DO ANESTHESIA: General. BLOOD LOSS: 250 mL. INDICATIONS FOR PROCEDURE: The patient is an 88-year-old male that was seen at [facility] where he had a cold foot. It is unknown how long the foot has been like that, but the staff does claim that it has been like that for a couple of days. When he was examined at the group home, his left foot was cold and cool touch and he was sent to the emergency room. Once in the emergency room, he came in and he had a preoperative CTA that showed occlusion of his left SFA. Consent was then obtained from a family member, understanding all risks, benefits, and alternatives. DESCRIPTION OF PROCEDURE: Patient was then brought to the operating room and laid down on the operating table in a supine manner and the area of the right and left groin was prepped and draped in a sterile surgical manner. We then went ahead and injected 5 mL of lidocaine 1% over the right common femoral artery. We then went ahead and punctured the right common femoral artery. Micropuncture wire was inserted. Micropuncture sheath inserted and a traditional 5-Iranian sheath was inserted. A 0.035 floppy guide wire was inserted into the aorta followed by an Omni Flush catheter. We shot an aortogram showing that the aorta and the iliac arteries were without any disease; however, were very tortuous. We then used a 0.035 stiff guide wire up and got up and over and placed the wire in the left common femoral artery and our Omni Flush catheter followed. We then shot an angiogram of the left lower extremity showing that the common femoral artery and the profunda were patent, the SFA was occluded from its origin could not be visualized at all and there was no runoff anywhere into the foot and there was no reconstitution. At this point, we decided that the patient would need an open thrombectomy due to the fact that his leg has been cold for probably at least 5-7 days. We went ahead and first removed our 5-Iranian sheath from the right groin. Pressure was held for 5 minutes. After there was no more bleeding, the areas were then dried and we went ahead and placed Dermabond there. We then went over to the left groin and there was a palpable femoral pulse there. We went ahead, and using a skin marker, we marcie an incision for about 7 cm. We then went ahead and prepped and draped there. We then went ahead and used a number-15 blade and made a 6-cm incision. Bovie electrocautery used to control hemostasis and we were able to get down through all the subcutaneous tissue using Bovie electrocautery. Weitlaner clamp and we got down to the femoral sheath. Once we got down to the femoral sheath, using Metzenbaum scissors, we were able to dissect our common femoral artery, the profunda and our SFA, and vessel loops were placed around it. We then went ahead and got control the blood vessels. Five-thousand units of IV heparin were administered to the patient. We then took a number-11 blade and we got control of all the vessels and we made a transverse incision in the common femoral artery. We then used a number-4 Mary and placed it all the way down about 30 to the popliteal artery and we were able to perform embolectomy and clot was removed from the leg. We were able to 2-3 passes and all the clot was removed. We went up the iliac in the same way and we were able to remove clot in the same manner and the clot was removed. Our inflow was then opened. We then opened the profunda artery and there was good back-bleeding. Our SFA had good back-bleeding now, as well. We now went ahead and put a 5-Iranian sheath into the artery. We shot an angiogram of the left lower extremity via hand injection showing that the common femoral artery, the profunda, the SFA were patent down to the popliteal artery, but the tibials were not visualized. We tried to use a wire and manipulate into the tibials, but we were unsuccessful. At this point, we decided that we would close the artery, and fully anticoagulate the patient, and in this manner, the distal portion would open up, and the foot would warm up. There was plenty of collateral circulation going down into the calf on imaging, and upon being anticoagulated, the tibial vessels would probably open up and supply the foot. So, at this point, we irrigated our arteriotomy. We then went ahead and used a 6-0 Prolene double arm and closed the artery in a running fashion. We then went ahead and closed the subcutaneous tissue with 3-0 Vicryl in an interrupted manner and the skin was closed with skin sujatha. Patient had a palpable popliteal pulse now. The patient was transferred to the ICU for anticoagulation. Patient tolerated the procedure with no complications. Next, 4 x 4, Tegaderms were placed on the groin and patient was transferred to ICU. TON DE LUNA DO [id number]
[2018-10-20 13:39] LABS: BASO % 0.5 % (0-2.0); EOS % 0.6 % (0-4.5); HEMATOCRIT 26.8 % (35.4-49); HEMOGLOBIN 8.6 GM/dL (11.7-16.9); LYMPH % 6.5 % (8-40); MCH 27.3 pg (25.7-33.7); MCHC 32.2 g/dl (32.0-35.9); MEAN CELL VOLUME 84.8 fl (80-96); MEAN PLT VOLUME 7.9 fl (7.5-11.1); NEUT % 85.4 % (42.8-82.8); PLATELET COUNT 243 K/MM3 (134-434); RBC 3.17 M/mm3 (4.00-5.60); RDW 14.6 % (11.9-15.9); WHITE BLOOD COUNT 13.4 K/mm3 (4.0-10.0)
[2018-10-20] MEDS: morphine SULFATE 4 MG/ML VIAL IVPUSH PRN (13:52)
[2018-10-20 14:16] LABS: INR 1.46 (0.83-1.09); PROTHROMBIN TIME (PATIENT) 17.3 SEC (9.7-13.0)
[2018-10-20 14:18] LABS: ACTIVATED PTT 42.1 SECONDS (25.2-36.5)
--- NOTE | 2018-10-20 15:52 | PN ---
Teaching Attending Note Name of Resident: Will Arriaza ATTENDING PHYSICIAN STATEMENT I saw and evaluated the patient. I reviewed the resident's note and discussed the case with the resident. I agree with the resident's findings and plan as documented. SUBJECTIVE: Patient is in ICU s/p thrombolysis, patient is awake, alert,comfortable, pleasantly demented. OBJECTIVE: Vital Signs Temperature 99.8 F H 10/20/18 14:00 Pulse Rate 103 H 10/20/18 14:00 Respiratory Rate 20 10/20/18 12:00 Blood Pressure 143/78 10/20/18 14:00 O2 Sat by Pulse Oximetry (%) 100 10/20/18 09:00 GEN: alert, oriented to self only, no acute distress HEENT: PERRL, dry mucus membranes, gingival dried up blood. HEART: RRR, no murmurs noted LUNGS: CTA b/l, no wheezes noted ABDOMEN: Soft, nontender EXTREMITIES: LLE: cool to touch the foot and ankle. DP of left foot positive by doppler. left dorsum of the foot skin tear, not infected. RLE: good pulses, warm NEURO: CNII-XII grossly in tact, no gross deficits CBCD WBC 13.4 K/mm3 (4.0-10.0) H 10/20/18 12:59 RBC 3.17 M/mm3 (4.00-5.60) L 10/20/18 12:59 Hgb 8.6 GM/dL (11.7-16.9) L 10/20/18 12:59 Hct 26.8 % (35.4-49) L 10/20/18 12:59 MCV 84.8 fl (80-96) 10/20/18 12:59 MCHC 32.2 g/dl (32.0-35.9) 10/20/18 12:59 RDW 14.6 % (11.9-15.9) 10/20/18 12:59 Plt Count 243 K/MM3 (134-434) 10/20/18 12:59 MPV 7.9 fl (7.5-11.1) 10/20/18 12:59 CMP Sodium 139 mmol/L (136-145) 10/20/18 05:30 Potassium 4.0 mmol/L (3.5-5.1) 10/20/18 05:30 Chloride 107 mmol/L (98-107) 10/20/18 05:30 Carbon Dioxide 24 mmol/L (21-32) 10/20/18 05:30 Anion Gap 9 MMOL/L (8-16) 10/20/18 05:30 BUN 19 mg/dL (7-18) H 10/20/18 05:30 Creatinine 0.9 mg/dL (0.55-1.3) 10/20/18 05:30 Random Glucose 124 mg/dL (74-106) H 10/20/18 05:30 Calcium 7.9 mg/dL (8.5-10.1) L 10/20/18 05:30 Total Bilirubin 0.3 mg/dL (0.2-1) 10/19/18 05:30 AST 18 U/L (15-37) 10/19/18 05:30 ALT 19 U/L (13-61) 10/19/18 05:30 Alkaline Phosphatase 74 U/L (45-117) 10/19/18 05:30 Total Protein 6.3 g/dl (6.4-8.2) L 10/19/18 05:30 Albumin 2.2 g/dl (3.4-5.0) L 10/19/18 05:30 Current Medications Generic Name Dose Route Start Last Admin Trade Name Alanq PRN Reason Stop Dose Admin Heparin Sodium (Porcine) 1,000 unit 10/16/18 18:09 10/17/18 17:23 Heparin - IVPUSH 1,000 unit PRN PRN Administration Heparin Heparin Sodium (Porcine) 5,000 unit 10/16/18 18:09 Heparin - IVPUSH PRN PRN Heparin HEPARIN SOD,PORK IN 0.45% NACL 25,000 units in 500 mls @ 20 mls/hr 10/16/18 18 :15 10/19/18 19:30 Heparin-1/2ns 25,000 Units/500 IVPB 500 units/hr TITR AVINASH 10 mls/hr Administration Protocol 1,000 UNITS/HR Sodium Chloride 1,000 mls @ 42 mls/hr 10/19/18 12:15 10/20/18 12:50 Normal Saline - IV 42 mls/hr ASDIR AVINASH Administration Ketorolac Tromethamine 15 mg 10/19/18 20:50 10/20/18 05:07 Toradol Injection - IVPUSH 10/24/18 20:49 15 mg Q6H PRN Administration PAIN LEVEL 1 - 3 Morphine Sulfate 2 mg 10/19/18 17:28 10/20/18 13:52 Morphine Sulfate IVPUSH 2 mg Q4H PRN Administration PAIN LEVEL 4 - 6 Ondansetron HCl 4 mg 10/16/18 20:12 Zofran Injection IVPUSH Q6H PRN NAUSEA AND/OR VOMITING Promethazine HCl 12.5 mg 10/16/18 20:12 Phenergan Injection - IVPUSH Q6H PRN NAUSEA-FOR RESCUE AFTER 15 MIN Home Medications Medication Instructions Recorded Lanolin Alcohol/Mo/W.pet/[place] 113 gm TP BID 10/14/18 [Eucerin Creme] Silver Sulfadiazine 1% Top Cr 1 applic TP ONCE 10/14/18 [Silvadene] EKG noted (sinus rhythm with PACs, rate 87, Qtc 454) ASSESSMENT AND PLAN: Patient is a 88 year old male with PMhx of dementia presented to ED for having one week of left cold foot and swelling of the L foot. #POD #4 s/p LLE anigogram/open thrombectomy for Ischemic Left Foot by Dr. Mosquera.. Embolus was found in entire left leg. #POD #1 s/p LLE angiogram/thrombolysis with thrombolysis catheter. continue pulse check. TPA is off for now since fibriogen id below 106, Pt with palpable popliteal pulse. restart tpa when fibrinogen above 200, Ankle and foot are still cool to touch. Continue heparin ggt, pain control. doppler pulse checks, pain control. # Dementia hx DVT Px: heparin ggt
--- NOTE | 2018-10-20 16:32 | PN ---
Physical Exam: SUBJECTIVE: Patient seen and examined at bedside this morning. No acute events overnight. Some bleeding noted on the gums and on bilateral femoral sites. Fibrinogen noted to be low in the afternoon, TPA held. Popliteal pulse palpable and TP pulse heard on doppler. OBJECTIVE: Vital Signs Temperature 99.8 F H 10/20/18 14:00 Pulse Rate 103 H 10/20/18 14:00 Respiratory Rate 20 10/20/18 12:00 Blood Pressure 143/78 10/20/18 14:00 O2 Sat by Pulse Oximetry (%) 100 10/20/18 09:00 GENERAL: The patient is awake, alert, oriented to self, in no acute distress HEAD: Normal with no signs of trauma. EYES: PERRLA, EOMI, sclera anicteric, conjunctiva clear. ENT: oropharynx clear without exudates, moist mucous membranes. NECK: Trachea midline, full range of motion, supple. LUNGS: Breath sounds equal, clear to auscultation bilaterally. HEART: Regular rate and rhythm, S1, S2 without murmur, rub or gallop. ABDOMEN: Soft, nontender, nondistended, normoactive bowel sounds. EXTREMITIES: LLE: cool feet, gangrenous 4th toe, DP and TP not palpable, popliteal pulse palpable. +bleeding on left femoral site, pressure applied. RLE : +2 pulses, warm, well-perfused. No peripheral edema. Infusion catheter on the right with minimal bleeding NEUROLOGICAL: AAOx1, CN II-XII grossly intact. Normal speech, gait not observed. Laboratory Results - last 24 hr 10/19/18 10/19/18 10/19/18 18:00 18:00 18:00 WBC 11.8 H RBC 3.48 L Hgb 9.7 L Hct 29.8 L MCV 85.7 MCH 27.8 MCHC 32.4 RDW 14.5 Plt Count 246 D MPV 7.8 Absolute Neuts (auto) 9.7 H Neutrophils % 82.4 Lymphocytes % 6.8 L Monocytes % 9.2 Eosinophils % 1.3 D Basophils % 0.3 Nucleated RBC % 0 PT with INR 20.10 H INR 1.69 H PTT (Actin FS) 87.9 H Fibrinogen Cancelled Sodium Potassium Chloride Carbon Dioxide Anion Gap BUN Creatinine Est GFR (CKD-EPI)AfAm Est GFR (CKD-EPI)NonAf Random Glucose Calcium Phosphorus Magnesium 10/20/18 10/20/18 10/20/18 00:00 00:00 00:00 WBC 9.7 RBC 3.43 L Hgb 9.6 L Hct 29.5 L MCV 86.1 MCH 28.0 MCHC 32.5 RDW 14.8 Plt Count 262 MPV 7.6 Absolute Neuts (auto) 7.8 Neutrophils % 80.7 Lymphocytes % 8.5 D Monocytes % 8.4 Eosinophils % 1.9 Basophils % 0.5 Nucleated RBC % 0 PT with INR 14.70 H INR 1.24 H PTT (Actin FS) 34.4 Fibrinogen 106.0 L Sodium Potassium Chloride Carbon Dioxide Anion Gap BUN Creatinine Est GFR (CKD-EPI)AfAm Est GFR (CKD-EPI)NonAf Random Glucose Calcium Phosphorus Magnesium 10/20/18 10/20/18 10/20/18 05:30 05:30 05:30 WBC 7.3 RBC 3.27 L Hgb 9.2 L Hct 27.7 L MCV 84.5 MCH 28.1 MCHC 33.2 RDW 14.3 Plt Count 256 MPV 7.6 Absolute Neuts (auto) 5.3 Neutrophils % 72.3 Lymphocytes % 12.3 D Monocytes % 11.7 H Eosinophils % 2.8 Basophils % 0.9 Nucleated RBC % 0 PT with INR 17.30 H INR 1.46 H PTT (Actin FS) 37.8 H Fibrinogen Sodium Potassium Chloride Carbon Dioxide Anion Gap BUN Creatinine Est GFR (CKD-EPI)AfAm Est GFR (CKD-EPI)NonAf Random Glucose Calcium Phosphorus Magnesium 10/20/18 10/20/18 10/20/18 05:30 05:30 11:37 WBC RBC Hgb Hct MCV MCH MCHC RDW Plt Count MPV Absolute Neuts (auto) Neutrophils % Lymphocytes % Monocytes % Eosinophils % Basophils % Nucleated RBC % PT with INR INR PTT (Actin FS) Fibrinogen < 100.0 L* < 100.0 L* Sodium 139 Potassium 4.0 Chloride 107 Carbon Dioxide 24 Anion Gap 9 BUN 19 H Creatinine 0.9 Est GFR (CKD-EPI)AfAm 89.32 Est GFR (CKD-EPI)NonAf 77.06 Random Glucose 124 H Calcium 7.9 L Phosphorus 3.7 Magnesium 2.1 10/20/18 10/20/18 12:59 13:34 WBC 13.4 H RBC 3.17 L Hgb 8.6 L Hct 26.8 L MCV 84.8 MCH 27.3 MCHC 32.2 RDW 14.6 Plt Count 243 MPV 7.9 Absolute Neuts (auto) 11.4 H Neutrophils % 85.4 H Lymphocytes % 6.5 L D Monocytes % 7.0 Eosinophils % 0.6 Basophils % 0.5 Nucleated RBC % 0 PT with INR 17.30 H INR 1.46 H PTT (Actin FS) 42.1 H Fibrinogen Sodium Potassium Chloride Carbon Dioxide Anion Gap BUN Creatinine Est GFR (CKD-EPI)AfAm Est GFR (CKD-EPI)NonAf Random Glucose Calcium Phosphorus Magnesium Active Medications Generic Name Dose Route Start Last Admin Trade Name Freq PRN Reason Stop Dose Admin Heparin Sodium (Porcine) 1,000 unit 10/16/18 18:09 10/17/18 17:23 Heparin - IVPUSH 1,000 unit PRN PRN Administration Heparin Heparin Sodium (Porcine) 5,000 unit 10/16/18 18:09 Heparin - IVPUSH PRN PRN Heparin HEPARIN SOD,PORK IN 0.45% NACL 25,000 units in 500 mls @ 20 mls/hr 10/16/18 18 :15 10/19/18 19:30 Heparin-1/2ns 25,000 Units/500 IVPB 500 units/hr TITR AVINASH 10 mls/hr Administration Protocol 1,000 UNITS/HR Sodium Chloride 1,000 mls @ 42 mls/hr 10/19/18 12:15 10/20/18 12:50 Normal Saline - IV 42 mls/hr ASDIR AVINASH Administration Ketorolac Tromethamine 15 mg 10/19/18 20:50 10/20/18 05:07 Toradol Injection - IVPUSH 10/24/18 20:49 15 mg Q6H PRN Administration PAIN LEVEL 1 - 3 Morphine Sulfate 2 mg 10/19/18 17:28 10/20/18 13:52 Morphine Sulfate IVPUSH 2 mg Q4H PRN Administration PAIN LEVEL 4 - 6 Ondansetron HCl 4 mg 10/16/18 20:12 Zofran Injection IVPUSH Q6H PRN NAUSEA AND/OR VOMITING Promethazine HCl 12.5 mg 10/16/18 20:12 Phenergan Injection - IVPUSH Q6H PRN NAUSEA-FOR RESCUE AFTER 15 MIN ASSESSMENT/PLAN: Patient is an 88 year old male with past medical history of dementia, presented from [facility], due to cold left foot accompanied with pain. Patient was brought in to OR today and underwent LLE angiogram, open thrombectomy of femoral artery, popliteal artery and tibial artery. #Neuro -hx of dementia -will continue to monitor #Cardiovascular -left leg ischemia 2/2 LLE embolus -Vascular surgery (Dr. Mosquera) consulted. Recommendations appreciated. -POD 4: Open thrombectomy of femoral artery, popliteal artery, tibial artery -POD 1: Aortogram, LLE angiogram, thrombolysis -continue heparin drip -Keep NPO -Nazario catheter -Continue heparin drip at 10cc/hr -TPA at 10cc/hr -- on hold, with fibrinogen <100 -IV NS at 42cc/hr -CBC, PT/PTT, Fibrinogen q6h -IV Toradol and Morphine PRN for pain #Pulmo -on nasal cannula, keep SpO2>90% -incentive spirometry #GI -NPO for now #Renal -renal function stable -will continue to monitor #FEN -Not on any standing fluids -Electrolytes wnl, routine bmp monitoring -NPO as per vascular surgery #Prophylaxis -on heparin drip #Disposition -full code -ICU monitoring Visit type - Emergency Visit Emergency Visit: Yes ED Registration Date: 10/14/18 Care time: The patient presented to the Emergency Department on the above date and was hospitalized for further evaluation of their emergent condition. - New Patient This patient is new to me today: No - Critical Care Critical Care patient: Yes Total Critical Care Time (in minutes): 35 Critical Care Statement: The care of this patient involved high complexity decision making to prevent further life threatening deterioration of the patient 's condition and/or to evaluate & treat vital organ system(s) failure or risk of failure.
--- NOTE | 2018-10-20 17:30 | PATH ---
Surgical Pathology Report Patient Name: ELLEN HOANG Med. Rec. #: [id number] /Age/Gender: 1930 (Age: 88) / M Account: [id number] Location: ICU DISTRIBUTION A CLASS LINEMAN Taken: 10/16/2018 Received: 10/19/2018 Reported: 10/20/2018 Physicians: Ton Bowens M.D. Specimen(s) Received CLOT FROM LEFT LEG Clinical History Occlusion of artery left leg Final Diagnosis CLOT FROM LEFT LEG, EXCISION: FOCAL FIBROUS TISSUE AND ORGANIZING BLOOD CLOT. Electronically Signed Julieta Riddle M.D. Gross Description Received in formalin, labeled "clot from left leg" consists of multiple dark brown cylindrical blood clot measuring 4.0 x 3.5 x 0.5 cm in aggregate. Public [employer] Attendant sections submitted in in one cassette. AMBER/10/20/2018 rachell/10/20/2018
[2018-10-20] MEDS ORDERED: SODIUM CHLORIDE 250 ML IV STA (17:41)
[2018-10-20] MEDS ORDERED: SODIUM CHLORIDE 500 ML IV STA ×2 (18:44→23:44)
[2018-10-20 19:12] LABS: BASO % 0.3 % (0-2.0); EOS % 0.2 % (0-4.5); HEMATOCRIT 25.6 % (35.4-49); HEMOGLOBIN 8.3 GM/dL (11.7-16.9); LYMPH % 5.5 % (8-40); MCH 27.5 pg (25.7-33.7); MCHC 32.4 g/dl (32.0-35.9); MEAN CELL VOLUME 85.1 fl (80-96); MONO % 6.9 % (3.8-10.2); NEUT % 87.1 % (42.8-82.8); PLATELET COUNT 214 K/MM3 (134-434); RBC 3.01 M/mm3 (4.00-5.60); RDW 14.4 % (11.9-15.9); WHITE BLOOD COUNT 13.5 K/mm3 (4.0-10.0)
[2018-10-20] MEDS ORDERED: ONDANSETRON 4 MG/2 ML VIAL IVPUSH PRN (19:28)
[2018-10-20] MEDS ORDERED: LACTATED RINGERS SOLUTION 1,000 ML IV SCH (19:30)
[2018-10-20 19:31] LABS: INR 1.61 (0.83-1.09); PROTHROMBIN TIME (PATIENT) 19.1 SEC (9.7-13.0)
[2018-10-20 19:34] LABS: ACTIVATED PTT 38.2 SECONDS (25.2-36.5)
[2018-10-20] MEDS ORDERED: PROPOFOL 20 ML ONE (19:34)
[2018-10-20] MEDS ORDERED: ceFAZolin SODIUM 1 GM VIAL IVPB ONE (20:10)
[2018-10-20] MEDS ORDERED: ceFAZolin SODIUM 1 GM VIAL ONE (20:11)
[2018-10-20] MEDS ORDERED: LIDOCAINE HCL 1%, 10 MG/ML (20ML VIAL) INF ONE (20:41)
--- NOTE | 2018-10-20 22:05 | OP ---
Operative Note - Note: Operative Date: 10/20/18 Pre-Operative Diagnosis: LLE ischemia Operation: LLE angiogram, popliteal artery and tibial artery angioplasty Findings: poor runoff into left foot Post-Operative Diagnosis: Same as Pre-op Surgeon: Ton Mosquera Anesthesia: Fractional Estimated Blood Loss (mls): 50 Operative Report Dictated: Yes
[2018-10-20] MEDS ORDERED: HEPARIN NA (PORCINE) 5,000 UNITS/ML 1ML VIAL IVPUSH PRN ×3 (22:06→22:11)
--- NOTE | 2018-10-20 22:09 | PN ---
Progress Note (short form) - Note Progress Note: Vascular Surgery Pt still with outlow occlusion on angiogram. Spoke to family at length. Best option for definitive surgery would be a left AKA. Family to think about it. Will plan for thurs. Cont IV heparin. Ton Mosquera DO
[2018-10-20] MEDS ORDERED: HEPARIN SOD,PORK IN 0.45% NACL 25,000 UNITS/500 ML INFUS.BAG IVPB SCH (22:15)
[2018-10-21] MEDS ORDERED: SODIUM CHLORIDE 1,000 ML IV STA (00:19)
[2018-10-21 00:42] VITALS: TEMP 98
[2018-10-21 02:25] LABS: ARTERIAL BLOOD GAS BASE EXCESS -6.4 meq/l (-2-2); ARTERIAL BLOOD GAS PCO2 23.4 mmHg (35-45); ARTERIAL BLOOD GAS PO2 347 mmHg (80-105); ARTERIAL BLOOD GAS pH 7.47 (7.35-7.45)
[2018-10-21 02:27] LABS: ALLENS TEST POSITIVE
[2018-10-21] MEDS ORDERED: morphine SULFATE 4 MG/ML VIAL IVPUSH ONE (02:32)
[2018-10-21] MEDS ORDERED: morphine SULFATE 4 MG/ML VIAL ONE (02:34)
--- NOTE | 2018-10-21 02:46 | RAPID ---
Physical Examination Vital Signs: Vital Signs Temperature 98 F 10/21/18 00:30 Pulse Rate 88 10/21/18 00:30 Respiratory Rate 13 10/21/18 00:30 Blood Pressure 97/50 L 10/21/18 00:30 O2 Sat by Pulse Oximetry (%) 100 10/21/18 00:30 Findings/Remarks: Patient coded 1:40am Patient was initially in PEA ACLS protocol was initiated as per guidelines See code sheet for complete details Achieved ROSC multiple times; Spoke to family and vascular service spoke to family, they did not wish for aggressive interventions should he lose his pulse and were in favor for comfort care. HCP spoke to RN on record, HCP did not want patient to be intubated or resuscitated further. this was based on conversations she had with patient when he was of sound mind that stated if there was pssibility of neurological damage or needed machines to artifically prolong life in the setting of neurologic injurty. Mishel Person, the next of kin, was the person who goals of care were discussed. ROSC briefly achieved after speaking with family who wanted to stop efforts; explained situation to them that he still had a pulse but it was likely to be lost again. I confirmed that they did NOT wish for any intubation, further compressions, chemical code, etc. Informed team and resuscitative efforts stopped and pulse lost within seconds to minutes. Labs: CBC, BMP 10/20/18 17:52 10/20/18 05:30
--- NOTE | 2018-10-21 02:56 | PN ---
Progress Note (short form) - Note Progress Note: Anesthesiologist note Called for intubation. Pat was coded unable to intubate, CPR in progress. Glidescope was used. ETT#8 inserted. + ETCo2. BBS. Secured ETT at 22 cm. See the nurses note for CPR progress. Family was contacted by ICU and primary team, decision was made to DNI and DNR. Pat at 02:30 am.
[2018-10-21 05:55] VITALS: BP 101/53; PULSE 80
--- NOTE | 2018-10-22 16:54 | DS ---
Physical Exam: SUBJECTIVE: Please see rapid response note from 10/21/18 OBJECTIVE: PHYSICAL EXAM Please see rapid response note from 10/21/18 LABS HOSPITAL COURSE: Date of Admission:10/14/18 Date of Discharge: 10/22/18 HPI from Admission: 88 year old male with a hx of dementia presented to ED for 1 week of cold left foot and swelling of the L foot. He sees Dr. Mosquera as an outpatient and follows at [place]. Per report, patient started to develop blisters on his foot 2 days ago as well as increasing pain. Patient is not arousable on my exam and is unable to answer any of my questions. Hospital Course: CT with Aorta runoff revealed no arterial flow to the distal left leg. He was taken for angiogram/angioplasty which was converted to open embolectomy. Patient did regain some warmth to the leg just below the left knee however left popliteal was not present nor were distal LE pulses on the left. Pt received catheter directed tPA with good effect on LLE. Pt was noted to be bleeding from surgical site and catheter site, tPA was stopped. Pt was noted to be in cardiac arrest, coded to achieve ROSC. After extensive discussion with family, patient was made comfort measures only and shortly after. Please see rapid response note for further information. Minutes to complete discharge: 35 Discharge Summary Reason For Visit: OCCLUSION OF ARTERY Condition: Fair - Instructions Disposition: - Home Medications Comprehensive Discharge Medication List: Ambulatory Orders Lanolin Alcohol/Mo/W.pet/[place] [Eucerin Creme] 113 gm TP BID 10/14/18 Silver Sulfadiazine 1% Top Cr [Silvadene] 1 applic TP ONCE 10/14/18 This patient is new to me today: No Emergency Visit: Yes ED Registration Date: 10/14/18 Care time: The patient presented to the Emergency Department on the above date and was hospitalized for further evaluation of their emergent condition. Critical Care patient: Yes Total Critical Care Time (in minutes): 35 Critical Care Statement: The care of this patient involved high complexity decision making to prevent further life threatening deterioration of the patient 's condition and/or to evaluate & treat vital organ system(s) failure or risk of failure. - Discharge Referral Referred to [facility] Med P.C.: No
--- NOTE | 2018-10-22 17:22 | OP ---
DATE OF OPERATION: 10/20/2018 PREOPERATIVE DIAGNOSIS: Left lower extremity ischemia. POSTOPERATIVE DIAGNOSIS: Left lower extremity ischemia. PROCEDURE: Left lower extremity angiogram, popliteal artery and tibial artery angioplasty. SURGEON: Ton De Luna DO ANESTHESIA: Fractional. BLOOD LOSS: 50 mL. The patient is an 88-year-old male that has left lower extremity ischemia. Overnight we have been infusing tPA into his left leg in order to break apart his thrombus and revascularize him. We are now going back for a thrombolysis check. Patient was transferred from the ICU to the operating room. Patient's family was consented for the procedure, understanding all risks, benefits, and alternatives, and the patient was then brought to the operating room. Once in the operating room, he was laid on the operating table in supine manner, and the area of the left and right groin was prepped and draped in a sterile surgical manner. Patient already had the destination sheath in, cannulating the vein. We then went ahead and placed our wire into the EKOS catheter, and the EKOS catheter was removed. We then shot an angiogram of the left lower extremity showing that the SFA was patent down to the mid to distal SFA, and beyond that the entire runoff was occluded. We then placed a 0.035 floppy guidewire along with a Quick-Cross catheter and we were able to selectively cross the distal SFA and the popliteal artery and get the wire down into the peroneal artery and down to the ankle. We then exchanged for a [facility] wire. We then went ahead and used a 3 x 220 Ultraverse balloon. Patient had been administered 5000 units of IV heparin at this point, and we performed angioplasty of the peroneal artery, the popliteal artery, and the distal SFA. We then went ahead and placed a 6 x 150 balloon and performed angioplasty of the distal SFA and popliteal artery. Completion angiogram now showed that there was minimal flow coming down into the popliteal artery, and at this point there was still no runoff. At this point we decided that there was no more intervention that could be done. At this point we brought our sheath up and over, and StarClose device was successfully deployed in the right common femoral artery. Pressure was held for 5 minutes. After there was no more bleeding, the area was wet and dried and Dermabond was placed. Patient was now transferred to the ICU in stable condition. Total blood loss 50 mL. The next course of action, as we had spoken to the family prior to the procedure, is that the patient would need an amputation. TON DE LUNA DO [id number]
== END 2018-10-21 02:30 | disposition expired | DRG 253 ==
LOC: JER 10:52 → SUPCPDRO 10:52 → JERBED 18:46 → J7W 10-15 01:09 → JICU 10-16 18:54
PROVIDERS: ADMIT Internal Medicine; ATTEND Internal Medicine
PROC: 04CN0ZZ Extirpation of Matter from Left Popliteal Artery, Open Approach (ICD-10-PCS; 2018-10-16)
PROC: B40GYZZ Plain Radiography of Left Lower Extremity Arteries using Other Contrast (ICD-10-PCS; 2018-10-16)
PROC: B41DYZZ Fluoroscopy of Aorta and Bilateral Lower Extremity Arteries using Other Contrast (ICD-10-PCS; 2018-10-16)
PROC: 04CL0ZZ Extirpation of Matter from Left Femoral Artery, Open Approach (ICD-10-PCS; principal; 2018-10-16 14:00)
PROC: B40DYZZ Plain Radiography of Aorta and Bilateral Lower Extremity Arteries using Other Contrast (ICD-10-PCS; 2018-10-19)
PROC: B40GYZZ Plain Radiography of Left Lower Extremity Arteries using Other Contrast (ICD-10-PCS; 2018-10-19)
PROC: 3E05317 Introduction of Other Thrombolytic into Peripheral Artery, Percutaneous Approach (ICD-10-PCS; 2018-10-19)
PROC: 047N3ZZ Dilation of Left Popliteal Artery, Percutaneous Approach (ICD-10-PCS; 2018-10-20)
PROC: B40GYZZ Plain Radiography of Left Lower Extremity Arteries using Other Contrast (ICD-10-PCS; 2018-10-20)
PROC: 0BH17EZ Insertion of Endotracheal Airway into Trachea, Via Natural or Artificial Opening (ICD-10-PCS; 2018-10-21)
DX: I75.022 Atheroembolism of left lower extremity (principal); I97.620 Postprocedural hemorrhage of a circulatory system organ or structure following other procedure; F03.90 Unspecified dementia, unspecified severity, without behavioral disturbance, psychotic disturbance, mood disturbance, and anxiety; E88.09 Other disorders of plasma-protein metabolism, not elsewhere classified; Z66 Do not resuscitate; Y83.8 Other surgical procedures as the cause of abnormal reaction of the patient, or of later complication, without mention of misadventure at the time of the procedure
CPT/HCPCS: 36415; 36600; 70450-TC; 71045-TC-FY; 75635-TC; 76000-TC-FY; 80048; 80053; 82803; 82962; 83735; 84100; 84134; 85025; 85027; 85384; 85610; 85730; 86850; 86900; 86901; 88304-TC; 93005; 93010; 93306-TC; 93925-TC; 94760; 97116-GP; 97162-GP; 99284-25; J0131; J1644; J2997; J7030